=== PATIENT | female | born 1935 | race African-American/Black ===

== ENCOUNTER 2017-12-08 15:00 | Inpatient (IN) | payer OTHER ==
--- NOTE | 2017-12-08 15:46 | PDOC ---
Attending Attestation - Resident Resident Name: Mayito Montalvo - ED Attending Attestation I have performed the following: I have examined & evaluated the patient, The case was reviewed & discussed with the resident, I agree w/resident's findings & plan, Exceptions are as noted - Medical Decision Making 12/08/17 15:46 I, Dr. Brooklyn Dueñas, DO, attest that this document has been prepared under my direction and personally reviewed by me in its entirety. I further attest, that it accurately reflects all work, treatment, procedures and medical decision -making performed by me.
[2017-12-08 16:20] LABS: BASO % 0.5 % (0-2.0); HEMATOCRIT 44.3 % (32.4-45.2); LYMPH % 1.7 % (8-40); MCH 30.1 pg (25.7-33.7); MCHC 33.8 g/dl (32.0-36.0); MEAN CELL VOLUME 89.1 fl (80-96); MEAN PLT VOLUME 7.8 fl (7.5-11.1); MONO % 4.4 % (3.8-10.2); NEUT % 93.4 % (42.8-82.8); PLATELET COUNT 454 K/MM3 (134-434); RBC 4.97 M/mm3 (3.60-5.2); RDW 14.9 % (11.6-15.6); WHITE BLOOD COUNT 26.3 K/mm3 (4.0-10.0)
--- NOTE | 2017-12-08 16:25 | PDOC ---
Attending Attestation - Medical Decision Making 12/08/17 18:38 Pt presents to the ED complaining of epigastric pain with nausea and one episode of emesis. Denies fever, nausea and vomiting. Labs show elevated WBC count of 26. + mild tenderness in the epigastrium. Differential includes pyelonephritis, billiary disease, less likely other intraabdominal pathology. UA shows evidence of infection. Will treat with antibiotics and admit to medicine . RUQ US pending. Will check CT abdomen pelvis if US is negative. 12/08/17 18:45 <Nicolel Moses - Last Filed: 12/08/17 18:38> - HPI HPI: 12/08/17 17:56 The patient is a 82 year old female with a significant past medical history of HTN and HLD who presents to the ER with worsening abdominal pain. The patient describes the abdominal pain as intermittent, localized in the epigastrium, right and left upper quadrants with associated nausea and nonbloody, nonbilious vomit. Patient reports taking aleve with minimal relief. Patient denies having a colonscopy or endoscopy in the past. The patient denies chest pain, shortness of breath, headache, and dizziness. Denies fever, chills, diarrhea, and constipation. Denies dysuria, frequency, urgency, and hematuria. Allergies: strawberry Past surgical history: None reported. Social history: No reported alcohol, drug, or cigarette use. PCP: Dr. Giacomo Christianson - Physicial Exam PE: 12/08/17 19:35 ADULT EXAM GENERAL: Awake, alert, and fully oriented, in no acute distress HEAD: No signs of trauma EYES: PERRLA, EOMI, sclera anicteric, conjunctiva clear ENT: Auricles normal inspection, hearing grossly normal, nares patent, oropharynx clear without exudates. Moist mucosa NECK: Normal ROM, supple, no lymphadenopathy, JVD, or masses LUNGS: Breath sounds equal, clear to auscultation bilaterally. No wheezes, and no crackles HEART: Regular rate and rhythm, normal S1 and S2, no murmurs, rubs or gallops ABDOMEN: + mild tenderness in the epigastrium. Soft, normoactive bowel sounds. No guarding, no rebound. No masses EXTREMITIES: Normal range of motion, no edema. No clubbing or cyanosis. No cords, erythema, or tenderness NEUROLOGICAL: Cranial nerves II through XII grossly intact. Normal speech, normal gait SKIN: Warm, Dry, normal turgor, no rashes or lesions noted. <Cindy Brooks - Last Filed: 12/08/17 19:36>
--- NOTE | 2017-12-08 16:30 | PDOC ---
History of Present Illness - General History Source: Patient Exam Limitations: No Limitations - History of Present Illness Initial Comments: 12/08/17 16:21 The patient is an 82F with a PMH of HTN and HLD who presents to the ER with complaints of abdominal pain. The patient states that she's had intermittent, dull pain located in her RUQ, LUQ, and epigastrium. The pain started gradually and has worsened since it's onset. The pain has been associated with intermittent nausea and 3 bouts of NBNB vomiting. The patient has never had a colonoscopy or endoscopy. LBM 2 days ago which is not abnormal for the patient. The pain is not associated with any foods and was alleviated mildly by aleve. She denies any abdominal surgeries but states she's had "cysts" removed in the 's. <Mayito Montalvo - Last Filed: 12/08/17 18:51> <Marcia Obrien - Last Filed: 12/16/17 10:17> - General Chief Complaint: Pain Stated Complaint: CHEST PAIN Time Seen by Provider: 12/08/17 15:31 Past History - Past Medical History COPD: No HTN: Yes Hypercholesterolemia: Yes - Suicide/Smoking/Psychosocial Hx Smoking History: Never smoked <Mayito Montalvo - Last Filed: 12/08/17 18:51> <Marcia Obrien - Last Filed: 12/16/17 10:17> - Past Medical History Allergies/Adverse Reactions: Allergies Allergy/AdvReac Type Severity Reaction Status Date / Time strawberry Allergy Verified 12/08/17 16:55 Home Medications: Ambulatory Orders Atorvastatin Ca [Lipitor] 10 mg PO HS 12/08/17 Hydrochlorothiazide [Hctz -] 25 mg PO DAILY 12/08/17 Losartan Potassium 50 mg PO DAILY 12/08/17 Cefpodoxime Proxetil [Vantin -] 200 mg PO BID #20 tablet 12/15/17 Pantoprazole Sodium [Protonix -] 40 mg PO DAILY #30 tablet.ec 12/15/17 metroNIDAZOLE [Flagyl -] 500 mg PO TID #30 tablet 12/15/17 Review of Systems - Review of Systems Able to Perform ROS?: Yes Comments:: 12/08/17 16:38 GENERAL/CONSTITUTIONAL: No fever or chills. No weakness. HEAD, EYES, EARS, NOSE AND THROAT: No change in vision. No ear pain or discharge. No sore throat. CARDIOVASCULAR: No chest pain, palpitations, or lightheadedness. RESPIRATORY: No cough, wheezing, shortness of breath, or hemoptysis. GASTROINTESTINAL: Positive for nausea, vomiting, and abdominal pain. GENITOURINARY: No dysuria, frequency, hematuria, or change in urination. MUSCULOSKELETAL: No joint or muscle swelling or pain. No neck or back pain. SKIN: No rash or lesions. NEUROLOGIC: No headache, numbness, tingling, focal weakness, loss of consciousness, or change in strength/sensation. ENDOCRINE: No increased thirst. No abnormal weight change. HEMATOLOGIC/LYMPHATIC: No anemia, easy bleeding, or history of blood clots. ALLERGIC/IMMUNOLOGIC: No hives or skin allergy. Is the patient limited Tunisian proficient: No <Mayito Montalvo - Last Filed: 12/08/17 18:51> *Physical Exam - Vital Signs Last Vital Signs Temp Pulse Resp BP Pulse Ox 98.2 F 115 H 20 107/56 96 12/08/17 15:03 12/08/17 15:03 12/08/17 15:03 12/08/17 15:03 12/08/17 15:03 - Physical Exam Comments: 12/08/17 16:38 GENERAL: Well developed, well nourished. Awake and alert. No acute distress. HEENT: Normocephalic, atraumatic. Hearing grossly normal. Moist mucous membranes. PERRLA, EOMI. No conjunctival pallor. Sclera are non-icteric. NECK: Supple. Full ROM. No JVD. CARDIOVASCULAR: Regular rate and rhythm. No murmurs, rubs, or gallops. PULMONARY: No evidence of respiratory distress. Lungs clear to auscultation bilaterally. No wheezing, rales or rhonchi. ABDOMINAL: Soft. TTP over epigastrium, RUQ, and LUQ; most prominently in RUQ. Negative Coelho's sign. Non-distended. No rebound or guarding. GENITOURINARY: No CVA tenderness bilaterally. MUSCULOSKELETAL: Normal range of motion at all joints. No bony deformities or tenderness. EXTREMITIES: No cyanosis. No clubbing. No edema. No calf tenderness or swelling. SKIN: Warm and dry. Normal capillary refill. No rashes. No jaundice. NEUROLOGICAL: Alert, awake, appropriate. Cranial nerves 2-12 intact. Normal speech. Gait is normal without ataxia. PSYCHIATRIC: Cooperative. Good eye contact. Appropriate mood and affect. <Mayito Montalvo - Last Filed: 12/08/17 18:51> - Vital Signs Last Vital Signs Temp Pulse Resp BP Pulse Ox 97.9 F 89 18 114/70 94 L 12/15/17 13:26 12/15/17 13:26 12/15/17 08:50 12/15/17 13:26 12/15/17 08:50 <CamilleMarcia Kelsey - Last Filed: 12/16/17 10:17> Heart Score/ECG Review #1 ECG reviewed & interpreted by me at: 16:39 General ECG Interpretation: Sinus Rhythm, Normal Rate, Normal Intervals, No acute ischemic changes Compared to previous ECG there are: Previous ECG unavail 12/08/17 16:40 Sinus tach at 110 PA 116 QRS 98 QTc 480 Prolonged QT No STD or CESILIA No signs of acute ischemia No priors <Mayito Montalvo - Last Filed: 12/08/17 18:51> ED Treatment Course - LABORATORY CBC & Chemistry Diagram: 12/08/17 16:00 12/08/17 16:00 - RADIOLOGY Radiology Studies Ordered: Category Date Time Status CHEST X-RAY PORTABLE* [RAD] Stat Radiology 12/08/17 16:03 Ordered ABDOMEN US -LIMITED [US] Stat Ultrasound 12/08/17 16:17 Ordered <Mayito Montalvo - Last Filed: 12/08/17 18:51> - LABORATORY CBC & Chemistry Diagram: 12/13/17 06:30 12/15/17 07:24 - ADDITIONAL ORDERS Additional order review: 12/08/17 18:30 Blood Culture - Final Blood - Peripheral Venous NO GROWTH AFTER 5 DAYS INCUBATION 12/08/17 18:30 Blood Culture - Final Blood - Peripheral Venous NO GROWTH AFTER 5 DAYS INCUBATION 12/08/17 16:00 RBC 4.97 MCV 89.1 MCHC 33.8 RDW 14.9 MPV 7.8 Neutrophils % 93.4 H Lymphocytes % 1.7 L Monocytes % 4.4 Eosinophils % 0.0 Basophils % 0.5 - Medications Given in the ED: ED Medications Discontinued Medications Generic Name Dose Route Start Last Admin Trade Name Freq PRN Reason Stop Dose Admin Acetaminophen 1,000 mg 12/08/17 18:58 12/08/17 19:10 Ofirmev Injection - IVPB 12/08/17 18:59 1,000 mg ONCE ONE Administration Acetaminophen 650 mg 12/09/17 03:57 12/14/17 09:31 Tylenol - PO 650 mg Q6H PRN Administration FEVER Acetaminophen 1,000 mg 12/09/17 13:00 12/09/17 13:00 Ofirmev Injection - IVPB 12/09/17 13:01 1,000 mg ONCE ONE Administration Al Hydroxide/Mg Hydroxide 30 ml 12/12/17 23:00 12/12/17 23:18 Mylanta Oral Suspension - PO 12/12/17 23:01 30 ml ONCE ONE Administration Cefpodoxime Proxetil 200 mg 12/14/17 22:00 12/15/17 09:18 Vantin - PO 200 mg BID JOSE ENRIQUE Administration Ceftriaxone Sodium 1,000 mg/ 50 mls @ 100 mls/hr 12/08/17 18:50 12/08/17 19: 10 Dextrose IVPB 12/08/17 19:19 100 mls/hr ONCE ONE Administration Famotidine/Sodium Chloride 20 mg in 50 mls @ 100 mls/hr 12/08/17 18:58 19:05 Pepcid 20 Mg Premixed Ivpb - IVPB 12/08/17 19:27 100 mls/hr ONCE ONE Administration Potassium Chloride 10 meq in 100 mls @ 100 mls/hr 12/08/17 19:15 12/08/17 19: 15 Potassium Chloride 10 Meq Premix Ivpb - IVPB 12/08/17 20:14 100 mls/hr Q60M JOSE ENRIQUE Administration Piperacillin Sod/Tazobactam 100 mls @ 200 mls/hr 12/08/17 22:11 12/08/17 22: 11 Sod 4.5 gm/ Dextrose IVPB 12/08/17 22:40 200 mls/hr ONCE ONE Administration Protocol Vancomycin HCl 1,000 mg/ 250 mls @ 166.667 mls/hr 12/08/17 22:25 12/08/17 23: 00 Dextrose IVPB 12/08/17 23:54 166.667 mls/hr ONCE ONE Administration Protocol Dextrose/Sodium Chloride 1,000 mls @ 75 mls/hr 12/09/17 04:00 12/09/17 04:28 D5-1/2ns - IV 75 mls/hr ASDIR JOSE ENRIQUE Administration Metronidazole 500 mg in 100 mls @ 100 mls/hr 12/09/17 10:00 12/09/17 09:48 Flagyl 500mg Premixed Ivpb - IVPB 100 mls/hr Q8H-IV JOSE ENRIQUE Administration Levofloxacin 500 mg in 100 mls @ 100 mls/hr 12/09/17 03:53 12/09/17 14:42 Levaquin 500 Mg Premixed Ivpb - IVPB Not Given DAILY JOSE ENRIQUE Protocol Potassium Chloride 10 meq in 100 mls @ 100 mls/hr 12/09/17 04:00 12/09/17 05: 31 Potassium Chloride 10 Meq Premix Ivpb - IVPB 12/09/17 05:59 100 mls/hr Q60M JOSE ENRIQUE Administration Levofloxacin 500 mg in 100 mls @ 100 mls/hr 12/09/17 04:15 12/09/17 04:15 Levaquin 500 Mg Premixed Ivpb - IVPB 12/09/17 05:14 100 mls/hr ONCE ONE Administration Piperacillin Sod/Tazobactam 50 mls @ 100 mls/hr 12/09/17 18:00 12/10/17 09:08 Sod 2.25 gm/ Dextrose IVPB 12/10/17 10:29 100 mls/hr Q8H-IV JOSE ENRIQUE Administration Protocol Dextrose/Sodium Chloride 1,000 mls @ 100 mls/hr 12/09/17 17:15 12/10/17 06:03 D5-Ns - IV 100 mls/hr ASDIR JOSE ENRIQUE Administration Potassium Chloride 10 meq in 100 mls @ 100 mls/hr 12/09/17 17:15 12/09/17 18: 35 Potassium Chloride 10 Meq Premix Ivpb - IVPB 12/09/17 18:14 100 mls/hr Q60M JOSE ENRIQUE Administration Sodium Chloride 500 mls @ 500 mls/hr 12/09/17 17:15 12/09/17 18:34 Normal Saline - IV 12/09/17 18:14 500 mls/hr ASDIR STA Administration Potassium Chloride 10 meq in 100 mls @ 100 mls/hr 12/10/17 12:00 12/10/17 17: 03 Potassium Chloride 10 Meq Premix Ivpb - IVPB 12/10/17 14:59 100 mls/hr Q60M JOSE ENRIQUE Administration Dextrose/Sodium Chloride 1,000 mls @ 90 mls/hr 12/10/17 11:47 12/11/17 09:18 D5-Ns - IV 90 mls/hr ASDIR JOSE ENRIQUE Administration Piperacillin Sod/Tazobactam 100 mls @ 200 mls/hr 12/10/17 18:00 12/11/17 09: 17 Sod 4.5 gm/ Dextrose IVPB 200 mls/hr Q8H-IV JOSE ENRIQUE Administration Protocol Dextrose/Sodium Chloride 1,000 mls @ 65 mls/hr 12/11/17 12:36 12/12/17 09:23 D5-Ns - IV 65 mls/hr ASDIR JOSE ENRIQUE Administration Ceftriaxone Sodium 1 gm/ 50 mls @ 200 mls/hr 12/11/17 15:00 12/14/17 09:31 Dextrose IVPB 200 mls/hr DAILY JOSE ENRIQUE Administration Protocol Metronidazole 500 mg in 100 mls @ 100 mls/hr 12/11/17 18:00 12/14/17 09:31 Flagyl 500mg Premixed Ivpb - IVPB 100 mls/hr Q8H-IV JOSE ENRIQUE Administration Sodium Chloride 1,000 mls @ 75 mls/hr 12/12/17 14:00 12/13/17 06:04 1/2 Normal Saline IV 75 mls/hr ASDIR JOSE ENRIQUE Administration Sodium Chloride 1,000 mls @ 35 mls/hr 12/13/17 12:06 12/14/17 09:36 1/2 Normal Saline IV 35 mls/hr ASDIR JOSE ENRIQUE Administration Losartan Potassium 50 mg 12/09/17 10:00 12/09/17 09:48 Cozaar - PO Not Given DAILY JOSE ENRIQUE Metronidazole 500 mg 12/14/17 14:00 12/15/17 13:42 Flagyl - PO 500 mg TID JOSE ENRIQUE Administration Morphine Sulfate 4 mg 12/09/17 03:55 12/11/17 21:44 Morphine Sulfate IVPUSH 4 mg Q6H PRN Administration PAIN 4-6 Pantoprazole Sodium 40 mg 12/13/17 10:45 12/15/17 09:18 Protonix - PO 40 mg DAILY JOSE ENRIQUE Administration Potassium Chloride 20 meq 12/11/17 12:45 12/11/17 13:11 Potassium Chloride Oral Liquid PO 09/12/18 12:46 20 meq ONCE ONE Administration Potassium Chloride 20 meq 12/13/17 13:15 12/13/17 13:15 Potassium Chloride Oral Liquid PO 12/13/17 13:16 20 meq ONCE ONE Administration Sodium Chloride 2,449 ml 12/08/17 18:55 12/08/17 19:10 Normal Saline - 30 ml/kg (2449 ml) 12/08/17 18:56 Not Given IV ONCE STA Sodium Chloride 1,000 ml 12/08/17 21:24 12/08/17 21:25 Normal Saline - IV 12/08/17 21:25 1,000 ml ONCE ONE Administration Sodium Chloride 1,000 ml 12/08/17 23:19 12/08/17 23:20 Normal Saline - IV 12/08/17 23:20 1,000 ml ONCE ONE Administration Sucralfate 1 gm 12/13/17 13:30 12/15/17 09:17 Carafate Oral Suspension - PO 1 gm BID JOSE ENRIQUE Administration <Mracia Obrien - Last Filed: 12/16/17 10:17> Medical Decision Making - Medical Decision Making 12/08/17 18:51 The patient is an 82F with a PMH of HTN and HLD who presents with b/l upper quadrant pain and epigastric pain concerning for cholecystitis vs pancreatitis vs atypical presentation of ACS. Pending labs and imaging. Pt signed out to Dr. Monroy for continued care. <Mayito Montalvo - Last Filed: 12/08/17 18:51> *DC/Admit/Observation/Transfer <Mayito Montalvo - Last Filed: 12/08/17 18:51> <Marcia Obrien - Last Filed: 12/16/17 10:17> Diagnosis at time of Disposition: Hyperbilirubinemia, SETH (acute kidney injury), Cholecystitis Leukocytosis Qualifiers: Leukocytosis type: unspecified Qualified Code(s): D72.829 - Elevated white blood cell count, unspecified Abdominal pain Qualifiers: Abdominal location: unspecified location Qualified Code(s): R10.9 - Unspecified abdominal pain - Discharge Dispostion Disposition: VNS/HOME HEALTH CARE Condition at time of disposition: Good
[2017-12-08 16:32] LABS: INR 1.19 (0.83-1.09); PROTHROMBIN TIME (PATIENT) 13.5 SEC (9.7-13.0)
[2017-12-08 16:45] LABS: PLATELET ESTIMATE ADEQUATE
[2017-12-08 16:52] LABS: ALBUMIN 3.1 g/dl (3.4-5.0); ANION GAP 16 MMOL/L (8-16); BILIRUBIN,TOTAL 1.6 mg/dL (0.2-1.0); BLOOD UREA NITROGEN 40 mg/dL (7-18); CALCIUM 9.1 mg/dL (8.5-10.1); CHLORIDE 91 mmol/L (98-107); CO2 25 mmol/L (21-32); CREATININE 2.2 mg/dL (0.55-1.02); GLUCOSE,RANDOM 94 mg/dL (74-106); LIPASE 116 U/L (73-393); SGPT/ALT 89 U/L (12-78); SODIUM 132 mmol/L (136-145); TOT PROT 7.9 g/dl (6.4-8.2)
[2017-12-08 16:53] LABS: ALK PHOS 113 U/L (45-117)
[2017-12-08 16:54] LABS: POTASSIUM 3.3 mmol/L (3.5-5.1); SGOT/AST 38 U/L (15-37)
[2017-12-08 17:52] LABS: URINE APPEARANCE TURBID; URINE BILIRUBIN NEGATIVE (<2.0 mg/dL); URINE COLOR AMBER; URINE GLUCOSE (UA) NEGATIVE (NEGATIVE); URINE KETONE NEGATIVE (NEGATIVE); URINE LEUK ESTERASE TRACE (NEGATIVE); URINE NITRITE NEGATIVE (NEGATIVE); URINE PROTEIN 1+ (NEGATIVE); URINE UROBILINOGEN 4.0 E.U/dl mg/dL (0.2-1.0)
[2017-12-08 17:58] LABS: EPI CELLS MANY /HPF (FEW); URINE BACTERIA MODERATE /hpf (NONE SEEN); URINE MUCUS MODERATE
[2017-12-08] MEDS ORDERED: CEFTRIAXONE 1,000 MG in DEXTROSE 5%-WATER - 50 ML IVPB ONE (18:50)
--- NOTE | 2017-12-08 18:50 | PDOC ---
*Physical Exam - Vital Signs Last Vital Signs Temp Pulse Resp BP Pulse Ox 98.2 F 115 H 20 107/56 96 12/08/17 15:03 12/08/17 15:03 12/08/17 15:03 12/08/17 15:03 12/08/17 15:03 - Physical Exam Comments: 12/08/17 18:40 Patient's care endorsed to me by Dr. Montalvo at the end of his shift. The patient is an 82 YOF with h/o HTN, HLD, and abdominal surgery "for cysts" in the 1970s, who p/w 2 days worsening RUQ and epigastric pain, WBC >26, T. bili mild increased. On vitals she is mildly tachycardic, rectal temp is 99.9. General Appearance: Yes: Nourished, Appropriately Dressed, Other (nontoxic appearing, pleasant elderly female accompanied by her daughter, answers questions appropriately). No: Apparent Distress HEENT: positive: EOMI, JOSÉ, Normal Voice, Hearing Grossly Normal. negative: Scleral Icterus (R), Scleral Icterus (L), Nasal Congestion Neck: positive: Trachea midline, Supple. negative: Tender, Rigid, Lymphadenopathy (R), Lymphadenopathy (L) Respiratory/Chest: positive: Lungs Clear, Normal Breath Sounds. negative: Respiratory Distress, Crackles, Rhonchi, Stridor, Wheezing Cardiovascular: positive: Regular Rhythm, Regular Rate, S1, S2. negative: Edema , JVD, Murmur, Tachycardia Gastrointestinal/Abdominal: positive: Normal Bowel Sounds, Tender (mild epigastric and RUQ ttp), Soft. negative: Organomegaly, Pulsatile Mass, Guarding Musculoskeletal: positive: Normal Inspection. negative: Decreased Range of Motion, Vertebral Tenderness Extremity: positive: Normal Capillary Refill, Normal Inspection, Normal Range of Motion. negative: Tender, Cyanosis Integumentary: positive: Normal Color, Dry, Warm. 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 negative: EOM Palsy, Facial Droop, Numbness, Sensory Deficit, Confused, Disoriented ED Treatment Course - LABORATORY CBC & Chemistry Diagram: 12/08/17 22:30 12/08/17 22:30 - ADDITIONAL ORDERS Additional order review: Laboratory Results 12/08/17 12/08/17 12/08/17 17:40 16:00 16:00 PT with INR INR Sodium 132 L Potassium 3.3 L Chloride 91 L Carbon Dioxide 25 Anion Gap 16 BUN 40 H Creatinine 2.2 H Creat Clearance w eGFR 21.48 Random Glucose 94 Calcium 9.1 Total Bilirubin 1.6 H AST 38 H ALT 89 H Alkaline Phosphatase 113 Creatine Kinase Troponin I Total Protein 7.9 Albumin 3.1 L Lipase 116 Urine Color [place] Urine Appearance Turbid Urine pH 5.0 Ur Specific [place] 1.019 Urine Protein 1+ H Urine Glucose (UA) Negative Urine Ketones Negative Urine Blood Negative Urine Nitrite Negative Urine Bilirubin Negative Urine Urobilinogen 4.0 e.u/dl H Ur Leukocyte Esterase Trace Urine WBC (Auto) 30 Urine RBC (Auto) None Ur Epithelial Cells Many Urine Bacteria Moderate Urine Mucus Moderate Anti-A Titer Cancelled Blood Type Cancelled Antibody Screen Cancelled 12/08/17 12/08/17 16:00 16:00 PT with INR 13.50 H INR 1.19 H Sodium Potassium Chloride Carbon Dioxide Anion Gap BUN Creatinine Creat Clearance w eGFR Random Glucose Calcium Total Bilirubin AST ALT Alkaline Phosphatase Creatine Kinase 142 Troponin I < 0.02 Total Protein Albumin Lipase Urine Color Urine Appearance Urine pH Ur Specific [place] Urine Protein Urine Glucose (UA) Urine Ketones Urine Blood Urine Nitrite Urine Bilirubin Urine Urobilinogen Ur Leukocyte Esterase Urine WBC (Auto) Urine RBC (Auto) Ur Epithelial Cells Urine Bacteria Urine Mucus Anti-A Titer Blood Type Antibody Screen 12/08/17 16:00 RBC 4.97 MCV 89.1 MCHC 33.8 RDW 14.9 MPV 7.8 Neutrophils % 93.4 H Lymphocytes % 1.7 L Monocytes % 4.4 Eosinophils % 0.0 Basophils % 0.5 Medical Decision Making - Medical Decision Making Laboratory Tests 12/08/17 12/08/17 12/08/17 16:00 16:00 16:00 WBC 26.3 H RBC 4.97 Hgb 15.0 Hct 44.3 MCV 89.1 MCH 30.1 MCHC 33.8 RDW 14.9 Plt Count 454 H MPV 7.8 Absolute Neuts (auto) 24.6 H Neutrophils % 93.4 H Neutrophils % (Manual) 87.0 H Band Neutrophils % 5.0 Lymphocytes % 1.7 L Lymphocytes % (Manual) 6.0 L Monocytes % 4.4 Monocytes % (Manual) 2 L Eosinophils % 0.0 Eosinophils % (Manual) 0.0 Basophils % 0.5 Basophils % (Manual) 0.0 Nucleated RBC % 0 Platelet Estimate Adequate PT with INR 13.50 H INR 1.19 H Sodium Potassium Chloride Carbon Dioxide Anion Gap BUN Creatinine Creat Clearance w eGFR Random Glucose Lactic Acid Calcium Total Bilirubin AST ALT Alkaline Phosphatase Creatine Kinase 142 Troponin I < 0.02 Total Protein Albumin Lipase Urine Color Urine Appearance Urine pH Ur Specific [place] Urine Protein Urine Glucose (UA) Urine Ketones Urine Blood Urine Nitrite Urine Bilirubin Urine Urobilinogen Ur Leukocyte Esterase Urine WBC (Auto) Urine RBC (Auto) Ur Epithelial Cells Urine Bacteria Urine Mucus Anti-A Titer Blood Type Antibody Screen 12/08/17 12/08/17 12/08/17 16:00 16:00 17:40 WBC RBC Hgb Hct MCV MCH MCHC RDW Plt Count MPV Absolute Neuts (auto) Neutrophils % Neutrophils % (Manual) Band Neutrophils % Lymphocytes % Lymphocytes % (Manual) Monocytes % Monocytes % (Manual) Eosinophils % Eosinophils % (Manual) Basophils % Basophils % (Manual) Nucleated RBC % Platelet Estimate PT with INR INR Sodium 132 L Potassium 3.3 L Chloride 91 L Carbon Dioxide 25 Anion Gap 16 BUN 40 H Creatinine 2.2 H Creat Clearance w eGFR 21.48 Random Glucose 94 Lactic Acid Calcium 9.1 Total Bilirubin 1.6 H AST 38 H ALT 89 H Alkaline Phosphatase 113 Creatine Kinase Troponin I Total Protein 7.9 Albumin 3.1 L Lipase 116 Urine Color [place] Urine Appearance Turbid Urine pH 5.0 Ur Specific [place] 1.019 Urine Protein 1+ H Urine Glucose (UA) Negative Urine Ketones Negative Urine Blood Negative Urine Nitrite Negative Urine Bilirubin Negative Urine Urobilinogen 4.0 e.u/dl H Ur Leukocyte Esterase Trace Urine WBC (Auto) 30 Urine RBC (Auto) None Ur Epithelial Cells Many Urine Bacteria Moderate Urine Mucus Moderate Anti-A Titer Cancelled Blood Type Cancelled Antibody Screen Cancelled 12/08/17 18:30 WBC RBC Hgb Hct MCV MCH MCHC RDW Plt Count MPV Absolute Neuts (auto) Neutrophils % Neutrophils % (Manual) Band Neutrophils % Lymphocytes % Lymphocytes % (Manual) Monocytes % Monocytes % (Manual) Eosinophils % Eosinophils % (Manual) Basophils % Basophils % (Manual) Nucleated RBC % Platelet Estimate PT with INR INR Sodium Potassium Chloride Carbon Dioxide Anion Gap BUN Creatinine Creat Clearance w eGFR Random Glucose Lactic Acid 1.1 Calcium Total Bilirubin AST ALT Alkaline Phosphatase Creatine Kinase Troponin I Total Protein Albumin Lipase Urine Color Urine Appearance Urine pH Ur Specific [place] Urine Protein Urine Glucose (UA) Urine Ketones Urine Blood Urine Nitrite Urine Bilirubin Urine Urobilinogen Ur Leukocyte Esterase Urine WBC (Auto) Urine RBC (Auto) Ur Epithelial Cells Urine Bacteria Urine Mucus Anti-A Titer Blood Type Antibody Screen 12/08/17 19:23 Patient's rectal temp now 99.6. Ordered is Ofirmev, Pepcid, IVF, monitor placed. 12/08/17 19:40 I recheck vitals at this time: HR 86, Pulse ox 92% RA, RR 22, BP 119/67. Vital Signs Temperature 99.6 F 12/08/17 20:07 Pulse Rate 92 H 12/08/17 20:07 Respiratory Rate 18 12/08/17 20:07 Blood Pressure 123/64 12/08/17 20:07 O2 Sat by Pulse Oximetry (%) 93 L 12/08/17 20:07 12/08/17 20:15 I hooked up first liter IVF for the patient (NS). 12/08/17 20:[address] Brunner; in agreement with plan for admission to IP med/surg. Patient to get CT A/P without contrast. 12/08/17 22:19 CT A/P results with c/f acute cholecystitis and RLL PNA. I spoke with Dr. Brunner to inform her; requests Dr. Munroe. I spoke with Dr. Munroe; requests NPO and HIDA in the morning. I have already ordered Zosyn. Dr. Munroe agrees with plan to also order vancomycin. Patient will be kept NPO. 12/08/17 23:20 Repeat labs reviewed. 2nd liter NS ordered for the patient. *DC/Admit/Observation/Transfer Diagnosis at time of Disposition: Prolonged QT interval, Hyperbilirubinemia, SETH (acute kidney injury), Cholecystitis Leukocytosis Qualifiers: Leukocytosis type: unspecified Qualified Code(s): D72.829 - Elevated white blood cell count, unspecified Abdominal pain Qualifiers: Abdominal location: unspecified location Qualified Code(s): R10.9 - Unspecified abdominal pain - Discharge Dispostion Condition at time of disposition: Guarded Decision to Admit order: Yes - Referrals - Patient Instructions - Post Discharge Activity
[2017-12-08] MEDS ORDERED: SODIUM CHLORIDE 0.9% 1000 ML INFUS.BAG IV STA (18:55)
[2017-12-08] MEDS ORDERED: ACETAMINOPHEN 1000 MG/100 ML VIAL (NON FORMULARY) IVPB ONE (18:58)
[2017-12-08] MEDS ORDERED: FAMOTIDINE 20 MG/50 ML IVPB 20 MG/50 ML MG IVPB ONE ×3 (18:58→21:32)
[2017-12-08] MEDS ORDERED: KCL 10 MEQ IVPB 10 MEQ/100 ML INFUS.BAG IVPB SCH (19:15)
[2017-12-08] MEDS ORDERED: HEMOQUE TEST 1 EACH EACH ONE (20:58)
[2017-12-08] MEDS ORDERED: SODIUM CHLORIDE 0.9% 500 ML INFUS.BAG IV ONE ×2 (21:24→23:19)
[2017-12-08] MEDS ORDERED: ACETAMINOPHEN INJECTION 100 ML IVPB ONE (21:29)
[2017-12-08] MEDS ORDERED: CEFTRIAXONE 1 GM/50 ML BAG ONE (21:30)
[2017-12-08] MEDS ORDERED: KCL 10 MEQ IVPB 10 MEQ/100 ML INFUS.BAG IVPB ONE (21:31)
[2017-12-08] MEDS ORDERED: PIPERACILLIN/TAZOB 4.5 GM 4.5 GM in DEXTROSE 5%-WATER 100 ML IVPB ONE (22:11)
[2017-12-08] MEDS ORDERED: VANCOMYCIN 1,000 MG in DEXTROSE 5%-WATER - 250 ML IVPB ONE (22:25)
[2017-12-08 22:41] LABS: BASO % 0.4 % (0-2.0); HEMATOCRIT 40.9 % (32.4-45.2); HEMOGLOBIN 13.8 GM/dL (10.7-15.3); LYMPH % 2.5 % (8-40); MCH 30.3 pg (25.7-33.7); MCHC 33.8 g/dl (32.0-36.0); MEAN CELL VOLUME 89.5 fl (80-96); MEAN PLT VOLUME 7.9 fl (7.5-11.1); MONO % 5.2 % (3.8-10.2); NEUT % 91.9 % (42.8-82.8); PLATELET COUNT 410 K/MM3 (134-434); RBC 4.57 M/mm3 (3.60-5.2); RDW 14.9 % (11.6-15.6); WHITE BLOOD COUNT 22.6 K/mm3 (4.0-10.0)
[2017-12-08] MEDS ORDERED: PIPERACILLIN/TAZOB 4.5 GM 4.5 GM/100 ML BAG IVPB ONE (23:08)
[2017-12-08 23:09] LABS: ALBUMIN 2.6 g/dl (3.4-5.0); ANION GAP 11 MMOL/L (8-16); BLOOD UREA NITROGEN 46 mg/dL (7-18); CALCIUM 8.5 mg/dL (8.5-10.1); CHLORIDE 91 mmol/L (98-107); CO2 30 mmol/L (21-32); CREATININE 2.3 mg/dL (0.55-1.02); GLUCOSE,RANDOM 115 mg/dL (74-106); POTASSIUM 3.3 mmol/L (3.5-5.1); SGOT/AST 27 U/L (15-37); SGPT/ALT 67 U/L (12-78); SODIUM 132 mmol/L (136-145)
[2017-12-08 23:11] LABS: ALK PHOS 109 U/L (45-117); BILIRUBIN,TOTAL 0.9 mg/dL (0.2-1.0); TOT PROT 6.7 g/dl (6.4-8.2)
[2017-12-08 23:15] LABS: PLATELET ESTIMATE ADEQUATE
[2017-12-09] MEDS ORDERED: VANCOMYCIN 1 GRAM (PRE-DOCKED) 1,000 MG/250 ML BAG IVPB ONE (00:24)
[2017-12-09] MEDS ORDERED: ONDANSETRON 4 MG/2 ML VIAL IVPUSH PRN (03:57)
[2017-12-09] MEDS: KCL 10 MEQ IVPB 10 MEQ/100 ML INFUS.BAG IVPB SCH ×2 (04:00→05:31)
[2017-12-09] MEDS ORDERED: DEXTROSE 5%-0.45% SALINE 1,000 ML IV SCH (04:00)
[2017-12-09] MEDS ORDERED: KCL 10 MEQ IVPB 10 MEQ/100 ML INFUS.BAG IVPB ONE ×2 (04:09→05:24)
[2017-12-09 06:37] LABS: BASO % 0.2 % (0-2.0); HEMATOCRIT 40.8 % (32.4-45.2); HEMOGLOBIN 13.7 GM/dL (10.7-15.3); LYMPH % 2.1 % (8-40); MCH 30.1 pg (25.7-33.7); MCHC 33.6 g/dl (32.0-36.0); MEAN CELL VOLUME 89.5 fl (80-96); MONO % 4.7 % (3.8-10.2); PLATELET COUNT 332 K/MM3 (134-434); RBC 4.55 M/mm3 (3.60-5.2); RDW 14.6 % (11.6-15.6); WHITE BLOOD COUNT 18.4 K/mm3 (4.0-10.0)
[2017-12-09 06:59] LABS: ALBUMIN 2.3 g/dl (3.4-5.0); ANION GAP 12 MMOL/L (8-16); BLOOD UREA NITROGEN 45 mg/dL (7-18); CHLORIDE 95 mmol/L (98-107); CO2 25 mmol/L (21-32); GLUCOSE,RANDOM 98 mg/dL (74-106); POTASSIUM 3.5 mmol/L (3.5-5.1); SGOT/AST 25 U/L (15-37); SGPT/ALT 55 U/L (12-78); SODIUM 132 mmol/L (136-145)
[2017-12-09 07:01] LABS: ALK PHOS 106 U/L (45-117); BILIRUBIN,TOTAL 0.7 mg/dL (0.2-1.0)
--- NOTE | 2017-12-09 08:58 | CONSULT ---
Consult Consult Specialty:: Surgery Reason for Consultation:: Acute cholecystitis - History of Present Illness Chief Complaint: Abdominal pain History of Present Illness: The patient is a 82 year old female with a significant past medical history of HTN and HLD who presents to the ER with worsening abdominal pain x 2 days. The patient describes the abdominal pain as intermittent, localized in the epigastrium, right and left upper quadrants with associated nausea and nonbloody , nonbilious vomiting. Patient reports taking aleve with minimal relief. Patient denies having a colonoscopy or endoscopy in the past. The patient denies chest pain, shortness of breath, headache, and dizziness. Denies fever, chills, diarrhea, and constipation. Denies dysuria, frequency, urgency, and hematuria. - History Source History Provided By: Patient Limitations to Obtaining History: No Limitations - Past Medical History Cardio/Vascular: Yes: HTN Reproductive: Yes: Other (ovarian cyst) ...LMP Comment: post menopausal - Past Surgical History Past Surgical History: Yes: Cystectomy (ovarian cyst) - Smoking History Smoking history: Never smoked Home Medications - Allergies Allergies/Adverse Reactions: Allergies Allergy/AdvReac Type Severity Reaction Status Date / Time strawberry Allergy Verified 12/08/17 16:55 - Home Medications Home Medications: Ambulatory Orders Atorvastatin Ca [Lipitor] 10 mg PO HS 12/08/17 Hydrochlorothiazide [Hctz -] 25 mg PO DAILY 12/08/17 Losartan Potassium 50 mg PO DAILY 12/08/17 Review of Systems - Review of Systems Constitutional: reports: No Symptoms Gastrointestinal: reports: Abdominal Pain Musculoskeletal: reports: No Symptoms Integumentary: reports: No Symptoms Pain Intensity: 7 Physical Exam Vital Signs: Vital Signs Temperature 98.6 F 12/09/17 06:00 Pulse Rate 75 12/09/17 06:00 Respiratory Rate 12/09/17 06:00 Blood Pressure 112/48 12/09/17 06:00 O2 Sat by Pulse Oximetry (%) 90 L 12/09/17 06:00 Constitutional: Yes: Obese Eyes: Yes: Conjunctiva Clear HENT: Yes: Normocephalic Neck: Yes: Supple Cardiovascular: Yes: Regular Rate and Rhythm Respiratory: Yes: Poor Air Entry (RLL) Gastrointestinal: Yes: Abdomen, Obese, Tenderness (RUQ), Tenderness, Epigastrium ...Rectal Exam: Yes: Deferred Edema: No Integumentary: Yes: WNL Neurological: Yes: Alert, Oriented Labs: CBC, BMP 12/09/17 05:55 12/09/17 05:55 Imaging - Results Cat Scan: Image Reviewed Ultrasound: Report Reviewed, Image Reviewed Problem List - Problems (1) Cholecystitis Assessment/Plan: HIDA scan IR consult for possible percutaneous cholecystostomy in light of patient being high risk for surgery due to pneumonia and SETH. IV antibiotics Code(s): K81.9 - CHOLECYSTITIS, UNSPECIFIED
[2017-12-09] MEDS ORDERED: HEPARIN NA (PORCINE) 5,000 UNITS/ML 1ML VIAL SQ SCH (10:00)
[2017-12-09] MEDS ORDERED: LOSARTAN POTASSIUM 50 MG TABLET (FP) PO SCH (10:00)
--- NOTE | 2017-12-09 10:31 | EKG ---
Test Reason : Blood Pressure : / mmHG Vent. Rate : 113 BPM Atrial Rate : 113 BPM P-R Int : 116 ms QRS Dur : 098 ms QT Int : 350 ms P-R-T Axes : 039 -17 055 degrees QTc Int : 480 ms SINUS TACHYCARDIA POSSIBLE LEFT ATRIAL ENLARGEMENT LEFT VENTRICULAR HYPERTROPHY ABNORMAL ECG NO PREVIOUS ECGS AVAILABLE Confirmed by GAURI VORA, ADRIAN ([id number]) on 12/09/2017 10:31:12 AM Referred By: Confirmed By:ADRIAN ASTORGA MD
--- NOTE | 2017-12-09 11:02 | HP ---
Admitting History and Physical - Past Medical History Cardiovascular: Yes: HTN ...LMP Comment: post menopausal - Past Surgical History Past Surgical History: Yes: Cystectomy (ovarian cyst) - Smoking History Smoking history: Never smoked Home Medications - Allergies Allergies/Adverse Reactions: Allergies Allergy/AdvReac Type Severity Reaction Status Date / Time strawberry Allergy Verified 12/08/17 16:55 - Home Medications Home Medications: Ambulatory Orders Atorvastatin Ca [Lipitor] 10 mg PO HS 12/08/17 Hydrochlorothiazide [Hctz -] 25 mg PO DAILY 12/08/17 Losartan Potassium 50 mg PO DAILY 12/08/17 Physical Examination Vital Signs: Vital Signs Temperature 97.5 F L 12/09/17 09:27 Pulse Rate 73 12/09/17 10:59 Respiratory Rate 16 12/09/17 10:59 Blood Pressure 124/71 12/09/17 10:59 O2 Sat by Pulse Oximetry (%) 100 12/09/17 10:59 Labs: CBC, BMP 12/09/17 05:55 12/09/17 05:55
[2017-12-09 11:34] LABS: ANISOCYTOSIS 1+; MACROCYTOSIS 0; PLATELET ESTIMATE NORMAL
[2017-12-09] MEDS ORDERED: morphine SULFATE 4 MG/ML VIAL ONE (11:43)
[2017-12-09] MEDS: morphine SULFATE 4 MG/ML VIAL IVPUSH PRN (11:50)
--- NOTE | 2017-12-09 12:54 | CONSULT ---
Consult Consult Specialty:: Nephrology Reason for Consultation:: SETH - History of Present Illness Chief Complaint: abdominal pain History of Present Illness: Pt is an 82 year old female with pmhx of HTN and HLD who presents to the ER with abdominal pain. She has had decreased PO intake, nausea, and vomiting. She was found to have BG wall thickening and pericholecystic fluids. She was taken for a biliary drain today. I was called to evaluate her for SETH as she was found to have elevated creatinine. She denies history of CKD. She has been taking nsaids for the last week. She denies shortness of breath. She denies dysuria or hematuria. SHe denies family hx of kidney disease. She was on losartan and hctz for HTN. - History Source History Provided By: Patient, Medical Record - Past Medical History Cardio/Vascular: Yes: HTN, Hyperlipdemia ...LMP Comment: post menopausal - Past Surgical History Past Surgical History: Yes: Cystectomy (ovarian cyst) - Smoking History Smoking history: Never smoked Home Medications - Allergies Allergies/Adverse Reactions: Allergies Allergy/AdvReac Type Severity Reaction Status Date / Time strawberry Allergy Verified 12/08/17 16:55 - Home Medications Home Medications: Ambulatory Orders Atorvastatin Ca [Lipitor] 10 mg PO HS 12/08/17 Hydrochlorothiazide [Hctz -] 25 mg PO DAILY 12/08/17 Losartan Potassium 50 mg PO DAILY 12/08/17 Family Disease History - Family Disease History Family History: Denies Review of Systems - Review of Systems Constitutional: reports: Chills, Malaise Eyes: reports: No Symptoms HENT: reports: No Symptoms Neck: reports: No Symptoms Cardiovascular: reports: No Symptoms Respiratory: reports: No Symptoms Gastrointestinal: reports: Abdominal Pain Genitourinary: reports: No Symptoms Musculoskeletal: reports: No Symptoms Integumentary: reports: No Symptoms Neurological: reports: No Symptoms Endocrine: reports: No Symptoms Hematology/Lymphatic: reports: No Symptoms Psychiatric: reports: No Symptoms Physical Exam Vital Signs: Vital Signs Temperature 97.5 F L 12/09/17 09:27 Pulse Rate 73 12/09/17 10:59 Respiratory Rate 16 12/09/17 10:59 Blood Pressure 124/71 12/09/17 10:59 O2 Sat by Pulse Oximetry (%) 100 12/09/17 10:59 Constitutional: Yes: Calm Eyes: Yes: Conjunctiva Clear HENT: Yes: Atraumatic Neck: Yes: Supple Cardiovascular: Yes: S1, S2 Respiratory: Yes: On Nasal O2 Gastrointestinal: Yes: Soft, Abdomen, Obese, Other (biliary drain in place) Renal/: Yes: WNL Musculoskeletal: Yes: WNL Edema: No Neurological: Yes: Oriented Psychiatric: Yes: Oriented Labs: CBC, BMP 12/09/17 05:55 12/09/17 05:55 Laboratory Tests 12/08/17 12/08/17 12/08/17 16:00 16:00 17:40 WBC 26.3 H Creatinine 2.2 H Urine Protein 1+ H 12/08/17 12/08/17 12/09/17 22:30 22:30 05:55 WBC 22.6 H 18.4 H Creatinine 2.3 H Urine Protein 12/09/17 05:55 WBC Creatinine 2.0 H Urine Protein Imaging - Results Cat Scan: Report Reviewed Problem List - Problems (1) SETH (acute kidney injury) Code(s): N17.9 - ACUTE KIDNEY FAILURE, UNSPECIFIED (2) Abdominal pain Code(s): R10.9 - UNSPECIFIED ABDOMINAL PAIN Qualifiers: Abdominal location: unspecified location Qualified Code(s): R10.9 - Unspecified abdominal pain (3) Cholecystitis Code(s): K81.9 - CHOLECYSTITIS, UNSPECIFIED Assessment/Plan Current Medications Generic Name Dose Route Start Last Admin Trade Name Freq PRN Reason Stop Dose Admin Acetaminophen 650 mg 12/09/17 03:57 Tylenol - PO Q6H PRN FEVER Dextrose/Sodium Chloride 1,000 mls @ 75 mls/hr 12/09/17 04:00 12/09/17 04:28 D5-1/2ns - IV 75 mls/hr ASDIR JOSE ENRIQUE Administration Piperacillin Sod/Tazobactam 50 mls @ 100 mls/hr 12/10/17 18:00 Sod 2.25 gm/ Dextrose IVPB Q8H-IV JOSE ENRIQUE Protocol Piperacillin Sod/Tazobactam 50 mls @ 100 mls/hr 12/09/17 18:00 Sod 2.25 gm/ Dextrose IVPB 12/10/17 10:29 Q8H-IV JOSE ENRIQUE Protocol Losartan Potassium 50 mg 12/09/17 10:00 12/09/17 09:48 Cozaar - PO Not Given DAILY JOSE ENRIQUE Morphine Sulfate 4 mg 12/09/17 03:55 12/09/17 11:50 Morphine Sulfate IVPUSH 4 mg Q6H PRN Administration PAIN 4-6 Ondansetron HCl 4 mg 12/09/17 03:57 Zofran Injection IVPUSH Q8H PRN NAUSEA Selected Entries 12/09/17 12:45 Blood Pressure 135/94 Impression 1. SETH 2. cholecystitis 3. HTN 4. sepsis 5. fever 6. renal cysts 7. 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
[2017-12-09] MEDS ORDERED: ACETAMINOPHEN 1000 MG/100 ML VIAL (NON FORMULARY) IVPB ONE (13:00)
--- NOTE | 2017-12-09 14:10 | CON.ID ---
Consult - History of Present Illness History of Present Illness: Asked to evaluate this 82 y.o. female with PMH of HLD and HTN presenting with c/ o mainly RUQ/epigastric pain for the past 2 days associated with nausea and vomiting episodes. In the ER pt noted to have leukocytosis, fever, and elevated BUN/Creatinine. Chart, labs, and imaging have been evaluated. CT Abd/Pelvis revealed a distended GB with thickened wall and pericholecystic fluid and large calculi. Pt is now s/p biliary drain placement, noted to have fever > 102F and increasing wbc count (20K). She appears to be slightly confused and not a completely reliable source of information at this this point. She is alert and without acute distress. States she has RUQ pain but denies recent shortness of breath/cough/chest pain/dysuria. - History Source History Provided By: Patient, Medical Record Limitations to Obtaining History: No Limitations - Past Medical History Cardio/Vascular: Yes: HTN, Hyperlipdemia Reproductive: Yes: Fibroids ...LMP Comment: post menopausal - Past Surgical History Past Surgical History: Yes: Cystectomy (ovarian cyst) - Smoking History Smoking history: Never smoked Home Medications - Allergies Allergies/Adverse Reactions: Allergies Allergy/AdvReac Type Severity Reaction Status Date / Time strawberry Allergy Verified 12/08/17 16:55 - Home Medications Home Medications: Ambulatory Orders Atorvastatin Ca [Lipitor] 10 mg PO HS 12/08/17 Hydrochlorothiazide [Hctz -] 25 mg PO DAILY 12/08/17 Losartan Potassium 50 mg PO DAILY 12/08/17 Review of Systems Findings/Remarks: pt slightly confused - Review of Systems Constitutional: reports: Fever. denies: No Symptoms, Chills, Diaphoresis, Lethargy, Loss of Appetite, Malaise, Night Sweats, Unintentional Wgt. Loss, Weakness, Other Eyes: reports: No Symptoms. denies: Blind Spots, Blurred Vision, Double Vision , Eye Pain, Floaters, Photophobia, Recent Change in Vision, Other HENT: reports: No Symptoms. denies: Difficult Swallowing, Ear Discharge, Ear Pain, Epistaxis, Gingival Bleeding, Hearing Loss, Mouth Swelling, Nasal Congestion, Ocular Prosthesis, Throat Pain, Toothache, Ringing in Ears, Other Neck: reports: No Symptoms. denies: Decreased ROM, Lumps, Pain on Movement, Stiffness, Swollen Glands, Tenderness, Other Cardiovascular: reports: No Symptoms. denies: Chest Pain, Edema, Palpitations, Shortness of Breath, Other Respiratory: reports: No Symptoms. denies: Cough, Exercise Intolerance, Hemoptysis, Orthopnea, PND, Snoring, SOB, SOB on Exertion, Wheezing, Other Gastrointestinal: reports: Abdominal Pain (RUQ). denies: No Symptoms, Bloating , Constipation, Diarrhea, Dysphagia, Indigestion, Melena, Nausea, Rectal Bleeding, Vomiting, Vomiting Blood, Other Genitourinary: reports: No Symptoms. denies: Burning, Discharge, Dysuria, Flank Pain, Frequency, Hematuria, Incontinence, Lesions, Menses, Pain, Testicular Mass, Testicular Pain, Testicular Swelling, Urgency, Vaginal Bleeding , Other Breasts: reports: No Symptoms Reported Musculoskeletal: reports: No Symptoms. denies: Back Pain, Crepitus, Decreased ROM, Extremity Pain, Joint Pain, Joint Swelling, Muscle Pain, Muscle Cramps, Muscle Weakness, Other Integumentary: reports: No Symptoms. denies: Blister, Bruising, Change in Color , Eczema, Erythema, Incision, Lesions, Lump, Pallor, Pruritis, Rash, Wound, Other Neurological: reports: Confusion Endocrine: reports: No Symptoms. denies: Excessive Sweating, Flushing, Increased Hunger, Increased Thirst, Intolerance to Cold, Intolerance to Heat, Unexplained Weight Gain, Unexplained Weight Loss, Other Hematology/Lymphatic: reports: No Symptoms. denies: Easily Bruised, Excessive Bleeding, Swollen Glands, Other Psychiatric: reports: No Symptoms. denies: Altered Sleep Pattern, Anxiety, Depression, Hallucinations, Panic, Paranoia, Suicidal, Other Physical Exam Vital Signs: Vital Signs Temperature 102.1 F H 12/09/17 12:45 Pulse Rate 138 H 12/09/17 12:45 Respiratory Rate 24 12/09/17 12:45 Blood Pressure 135/94 12/09/17 12:45 O2 Sat by Pulse Oximetry (%) 100 12/09/17 10:59 Constitutional: Yes: No Distress, Calm Eyes: Yes: Conjunctiva Clear HENT: Yes: Atraumatic Neck: Yes: Supple Cardiovascular: Yes: Regular Rate and Rhythm Respiratory: Yes: CTA Bilaterally (poor inspiratory effort) Gastrointestinal: Yes: Normal Bowel Sounds, Soft, Tenderness (RUQ with deep palp ) Musculoskeletal: Yes: WNL Extremities: Yes: WNL Edema: No Integumentary: Yes: WNL Wound/Incision: Yes: Other (RUQ drain with semipurulent bilious fluid) Neurological: Yes: Alert, Confusion Labs: CBC, BMP 12/09/17 05:55 12/09/17 05:55 Laboratory Tests 12/08/17 12/08/17 12/08/17 16:00 16:00 16:00 WBC 26.3 H RBC 4.97 Hgb 15.0 Hct 44.3 MCV 89.1 MCH 30.1 MCHC 33.8 RDW 14.9 Plt Count 454 H MPV 7.8 Absolute Neuts (auto) 24.6 H Neutrophils % 93.4 H Neutrophils % (Manual) 87.0 H Band Neutrophils % 5.0 Lymphocytes % 1.7 L Lymphocytes % (Manual) 6.0 L Monocytes % 4.4 Monocytes % (Manual) 2 L Eosinophils % 0.0 Eosinophils % (Manual) 0.0 Basophils % 0.5 Basophils % (Manual) 0.0 Myelocytes % (Man) Promyelocytes % (Man) Blast Cells % (Manual) Nucleated RBC % 0 Metamyelocytes Hypochromia Platelet Estimate Adequate Polychromasia Poikilocytosis Anisocytosis Microcytosis Macrocytosis PT with INR 13.50 H INR 1.19 H Sodium Potassium Chloride Carbon Dioxide Anion Gap BUN Creatinine Creat Clearance w eGFR Random Glucose Lactic Acid Calcium Total Bilirubin AST ALT Alkaline Phosphatase Creatine Kinase 142 Troponin I < 0.02 Total Protein Albumin Lipase Urine Color Urine Appearance Urine pH Ur Specific [place] Urine Protein Urine Glucose (UA) Urine Ketones Urine Blood Urine Nitrite Urine Bilirubin Urine Urobilinogen Ur Leukocyte Esterase Urine WBC (Auto) Urine RBC (Auto) Ur Epithelial Cells Urine Bacteria Urine Mucus Anti-A Titer Blood Type Antibody Screen 12/08/17 12/08/17 12/08/17 16:00 16:00 17:40 WBC RBC Hgb Hct MCV MCH MCHC RDW Plt Count MPV Absolute Neuts (auto) Neutrophils % Neutrophils % (Manual) Band Neutrophils % Lymphocytes % Lymphocytes % (Manual) Monocytes % Monocytes % (Manual) Eosinophils % Eosinophils % (Manual) Basophils % Basophils % (Manual) Myelocytes % (Man) Promyelocytes % (Man) Blast Cells % (Manual) Nucleated RBC % Metamyelocytes Hypochromia Platelet Estimate Polychromasia Poikilocytosis Anisocytosis Microcytosis Macrocytosis PT with INR INR Sodium 132 L Potassium 3.3 L Chloride 91 L Carbon Dioxide 25 Anion Gap 16 BUN 40 H Creatinine 2.2 H Creat Clearance w eGFR 21.48 Random Glucose 94 Lactic Acid Calcium 9.1 Total Bilirubin 1.6 H AST 38 H ALT 89 H Alkaline Phosphatase 113 Creatine Kinase Troponin I Total Protein 7.9 Albumin 3.1 L Lipase 116 Urine Color [place] Urine Appearance Turbid Urine pH 5.0 Ur Specific [place] 1.019 Urine Protein 1+ H Urine Glucose (UA) Negative Urine Ketones Negative Urine Blood Negative Urine Nitrite Negative Urine Bilirubin Negative Urine Urobilinogen 4.0 e.u/dl H Ur Leukocyte Esterase Trace Urine WBC (Auto) 30 Urine RBC (Auto) None Ur Epithelial Cells Many Urine Bacteria Moderate Urine Mucus Moderate Anti-A Titer Cancelled Blood Type Cancelled Antibody Screen Cancelled 12/08/17 12/08/17 12/08/17 18:30 22:30 22:30 WBC 22.6 H RBC 4.57 Hgb 13.8 Hct 40.9 MCV 89.5 MCH 30.3 MCHC 33.8 RDW 14.9 Plt Count 410 MPV 7.9 Absolute Neuts (auto) 20.8 H Neutrophils % 91.9 H Neutrophils % (Manual) 87.0 H Band Neutrophils % 3.0 Lymphocytes % 2.5 L D Lymphocytes % (Manual) 5.0 L Monocytes % 5.2 Monocytes % (Manual) 3 L Eosinophils % 0.0 Eosinophils % (Manual) 0.0 Basophils % 0.4 Basophils % (Manual) 0.0 Myelocytes % (Man) Promyelocytes % (Man) Blast Cells % (Manual) Nucleated RBC % 0 Metamyelocytes Hypochromia Platelet Estimate Adequate Polychromasia Poikilocytosis Anisocytosis Microcytosis Macrocytosis PT with INR INR Sodium 132 L Potassium 3.3 L Chloride 91 L Carbon Dioxide 30 Anion Gap 11 BUN 46 H Creatinine 2.3 H Creat Clearance w eGFR 20.40 Random Glucose 115 H Lactic Acid 1.1 Calcium 8.5 Total Bilirubin 0.9 AST 27 ALT 67 Alkaline Phosphatase 109 Creatine Kinase Troponin I Total Protein 6.7 Albumin 2.6 L Lipase Urine Color Urine Appearance Urine pH Ur Specific [place] Urine Protein Urine Glucose (UA) Urine Ketones Urine Blood Urine Nitrite Urine Bilirubin Urine Urobilinogen Ur Leukocyte Esterase Urine WBC (Auto) Urine RBC (Auto) Ur Epithelial Cells Urine Bacteria Urine Mucus Anti-A Titer Blood Type Antibody Screen 12/08/17 12/09/17 12/09/17 22:30 05:55 05:55 WBC 18.4 H RBC 4.55 Hgb 13.7 Hct 40.8 MCV 89.5 MCH 30.1 MCHC 33.6 RDW 14.6 Plt Count 332 MPV 8.0 Absolute Neuts (auto) 17.1 H Neutrophils % 93.0 H Neutrophils % (Manual) 89.0 H Band Neutrophils % 3.0 Lymphocytes % 2.1 L Lymphocytes % (Manual) 3.0 L D Monocytes % 4.7 Monocytes % (Manual) 2 L Eosinophils % 0.0 Eosinophils % (Manual) 0.0 Basophils % 0.2 Basophils % (Manual) 0.0 Myelocytes % (Man) 3 H Promyelocytes % (Man) 0 Blast Cells % (Manual) 0 Nucleated RBC % 0 Metamyelocytes 0 Hypochromia 0 Platelet Estimate Normal Polychromasia 1+ Poikilocytosis 1+ Anisocytosis 1+ Microcytosis 1+ Macrocytosis 0 PT with INR INR Sodium 132 L Potassium 3.5 Chloride 95 L Carbon Dioxide 25 Anion Gap 12 BUN 45 H Creatinine 2.0 H Creat Clearance w eGFR 23.97 Random Glucose 98 Lactic Acid 1.1 Calcium 8.0 L Total Bilirubin 0.7 AST 25 ALT 55 Alkaline Phosphatase 106 Creatine Kinase Troponin I Total Protein 6.0 L Albumin 2.3 L Lipase Urine Color Urine Appearance Urine pH Ur Specific [place] Urine Protein Urine Glucose (UA) Urine Ketones Urine Blood Urine Nitrite Urine Bilirubin Urine Urobilinogen Ur Leukocyte Esterase Urine WBC (Auto) Urine RBC (Auto) Ur Epithelial Cells Urine Bacteria Urine Mucus Anti-A Titer Blood Type Antibody Screen Blood/RUQ drain cultures pending u/a: trace leuk esterase, 30 wbc Imaging - Results Chest X-ray: Report Reviewed Cat Scan: Report Reviewed Ultrasound: Report Reviewed Assessment/Plan 82 y.o. female with PMH of HTN and HLD presenting with upper abdominal pain, nausea and vomiting x 2 days. Imaging consistent with GB distention, pericholecystic fluid and large calculi as well as possible RLL pulmonary consolidation Sepsis Acute Cholecystitis s/p biliary drain placement Questionable PNA Sepsis Leukocytosis Fever SETH -- d/c Levaquin and Flagyl -- start Zosyn empirically for now, adjust based on cultures -- f/u blood and biliary fluid cultures -- send urine culture -- monitor temperatures, wbc trend -- monitor renal function -- surgical f/u will follow Thank you
[2017-12-09 17:11] VITALS: BMI 35.6
[2017-12-09] MEDS ORDERED: SODIUM CHLORIDE 500 ML IV STA (17:15)
[2017-12-09] MEDS ORDERED: KCL 10 MEQ IVPB 10 MEQ/100 ML INFUS.BAG IVPB SCH (17:15)
[2017-12-09] MEDS ORDERED: PIPERACILLIN/TAZOBACTAM 2.25 GM VIAL IVPB ONE (18:26)
[2017-12-09] MEDS ORDERED: DEXTROSE 5%-WATER - 50 ML IVPB ONE (18:26)
[2017-12-09] MEDS: PIPERACILLIN/TAZOB 2.25 GM 2.25 GM in DEXTROSE 5%-WATER - 50 ML IVPB SCH (18:35)
[2017-12-09] MEDS: DEXTROSE 5%-NORMAL SALINE 1,000 ML IV SCH (18:38)
[2017-12-09 22:25] LABS: URINE APPEARANCE CLEAR; URINE BILIRUBIN NEGATIVE (<2.0 mg/dL); URINE COLOR YELLOW; URINE GLUCOSE (UA) NEGATIVE (NEGATIVE); URINE KETONE NEGATIVE (NEGATIVE); URINE LEUK ESTERASE NEGATIVE (NEGATIVE); URINE NITRITE NEGATIVE (NEGATIVE); URINE PROTEIN NEGATIVE (NEGATIVE); URINE UROBILINOGEN NEGATIVE mg/dL (0.2-1.0)
[2017-12-09 22:26] LABS: EPI CELLS RARE /HPF (FEW)
[2017-12-10] MEDS ORDERED: DEXTROSE 5%-WATER - 50 ML IVPB ONE ×2 (00:44→09:05)
[2017-12-10] MEDS ORDERED: PIPERACILLIN/TAZOBACTAM 2.25 GM VIAL IVPB ONE ×2 (00:44→09:05)
[2017-12-10] MEDS: PIPERACILLIN/TAZOB 2.25 GM 2.25 GM in DEXTROSE 5%-WATER - 50 ML IVPB SCH ×2 (02:39→09:08)
[2017-12-10] MEDS: DEXTROSE 5%-NORMAL SALINE 1,000 ML IV SCH ×2 (06:03→12:11)
[2017-12-10 07:29] LABS: BASO % 0.1 % (0-2.0); EOS % 0.1 % (0-4.5); HEMATOCRIT 39.5 % (32.4-45.2); HEMOGLOBIN 13.1 GM/dL (10.7-15.3); LYMPH % 2.4 % (8-40); MCH 29.7 pg (25.7-33.7); MCHC 33.3 g/dl (32.0-36.0); MEAN CELL VOLUME 89.2 fl (80-96); MEAN PLT VOLUME 7.7 fl (7.5-11.1); MONO % 5.6 % (3.8-10.2); NEUT % 91.8 % (42.8-82.8); PLATELET COUNT 323 K/MM3 (134-434); RBC 4.43 M/mm3 (3.60-5.2); RDW 14.9 % (11.6-15.6); WHITE BLOOD COUNT 13.6 K/mm3 (4.0-10.0)
[2017-12-10 08:15] LABS: ALBUMIN 1.9 g/dl (3.4-5.0); ANION GAP 13 MMOL/L (8-16); BLOOD UREA NITROGEN 26 mg/dL (7-18); CALCIUM 8.4 mg/dL (8.5-10.1); CHLORIDE 102 mmol/L (98-107); CO2 24 mmol/L (21-32); CREATININE 1.4 mg/dL (0.55-1.02); GLUCOSE,RANDOM 115 mg/dL (74-106); POTASSIUM 3.2 mmol/L (3.5-5.1); SGOT/AST 29 U/L (15-37); SGPT/ALT 40 U/L (12-78); SODIUM 139 mmol/L (136-145)
[2017-12-10 08:17] LABS: ALK PHOS 125 U/L (45-117); BILIRUBIN,TOTAL 0.6 mg/dL (0.2-1.0); TOT PROT 5.5 g/dl (6.4-8.2)
[2017-12-10] MEDS: morphine SULFATE 4 MG/ML VIAL IVPUSH PRN ×2 (09:11→17:33)
[2017-12-10 10:24] LABS: ACANTHOCYTES 0; ANISOCYTOSIS 0; HELMET CELLS 0; HOWELL-JOLLY BODIES 0; MACROCYTOSIS 0; OVALOCYTE 0; PLATELET ESTIMATE NORMAL; ROULEAU 0; SICKELED CELLS 0; TARGET CELLS 0; TEAR DROP CELLS 0; TOXIC GRANULATION 0
--- NOTE | 2017-12-10 11:46 | PN ---
Progress Note, Physician History of Present Illness: Pt seen and examined at bedside. She feels a little better today. She denies shortness of breath. - Current Medication List Current Medications: Active Medications Acetaminophen (Tylenol -) 650 mg PO Q6H PRN PRN Reason: FEVER Piperacillin Sod/Tazobactam (Sod 2.25 gm/ Dextrose) 50 mls @ 100 mls/hr IVPB Q8H-IV JOSE ENRIQUE; Protocol Dextrose/Sodium Chloride (D5-Ns -) 1,000 mls @ 100 mls/hr IV ASDIR JOSE ENRIQUE Last Admin: 12/10/17 06:03 Dose: 100 mls/hr Morphine Sulfate (Morphine Sulfate) 4 mg IVPUSH Q6H PRN PRN Reason: PAIN 4-6 Last Admin: 12/10/17 09:11 Dose: 4 mg Ondansetron HCl (Zofran Injection) 4 mg IVPUSH Q8H PRN PRN Reason: NAUSEA - Objective Vital Signs: Vital Signs Temperature 98.3 F 12/10/17 06:00 Pulse Rate 100 H 12/10/17 06:00 Respiratory Rate 18 12/10/17 06:00 Blood Pressure 129/66 12/10/17 06:00 O2 Sat by Pulse Oximetry (%) 93 L 12/09/17 16:00 Constitutional: Yes: Calm Eyes: Yes: Conjunctiva Clear HENT: Yes: Atraumatic Neck: Yes: Supple Cardiovascular: Yes: S1, S2 Respiratory: Yes: CTA Bilaterally, On Nasal O2 Gastrointestinal: Yes: Tenderness, Other (biliary drain) Genitourinary: Yes: WNL Musculoskeletal: Yes: WNL Extremities: Yes: WNL Edema: No Neurological: Yes: Oriented Psychiatric: Yes: Oriented Labs: CBC, BMP 12/10/17 06:00 12/10/17 06:00 INR, PTT INR 1.19 (0.83-1.09) H 12/08/17 16:00 - ....Imaging Ultrasound: Report Reviewed Problem List - Problems (1) SETH (acute kidney injury) Code(s): N17.9 - ACUTE KIDNEY FAILURE, UNSPECIFIED (2) Abdominal pain Code(s): R10.9 - UNSPECIFIED ABDOMINAL PAIN Qualifiers: Abdominal location: unspecified location Qualified Code(s): R10.9 - Unspecified abdominal pain (3) Cholecystitis Code(s): K81.9 - CHOLECYSTITIS, UNSPECIFIED Assessment/Plan Current Medications Generic Name Dose Route Start Last Admin Trade Name Freq PRN Reason Stop Dose Admin Acetaminophen 650 mg 12/09/17 03:57 Tylenol - PO Q6H PRN FEVER Piperacillin Sod/Tazobactam 50 mls @ 100 mls/hr 12/10/17 18:00 Sod 2.25 gm/ Dextrose IVPB Q8H-IV JOSE ENRIQUE Protocol Dextrose/Sodium Chloride 1,000 mls @ 100 mls/hr 12/09/17 17:15 12/10/17 06:03 D5-Ns - IV 100 mls/hr ASDIR JOSE ENRIQUE Administration Morphine Sulfate 4 mg 12/09/17 03:55 12/10/17 09:11 Morphine Sulfate IVPUSH 4 mg Q6H PRN Administration PAIN 4-6 Ondansetron HCl 4 mg 12/09/17 03:57 Zofran Injection IVPUSH Q8H PRN NAUSEA Impression 1. SETH 2. cholecystitis 3. HTN 4. sepsis 5. fever 6. renal cysts 7. hypokalemia Plan - replace potassium - check mag - cont with fluids - renal function is improving - renal ultrasound reviewed, pt has an atrophic left kidney - cont abx per ID - likely seth from sepsis and pre-renal disease - replace potassium - will follow
[2017-12-10] MEDS: KCL 10 MEQ IVPB 10 MEQ/100 ML INFUS.BAG IVPB SCH ×3 (13:52→17:03)
--- NOTE | 2017-12-10 14:12 | PN ---
Progress Note, Physician History of Present Illness: Pt feels well but with mild RUQ discomfort at site of drain. She is afebrile, alert, and not confused today. Has no specific other complaints. - Current Medication List Current Medications: Active Medications Acetaminophen (Tylenol -) 650 mg PO Q6H PRN PRN Reason: FEVER Potassium Chloride (Potassium Chloride 10 Meq Premix Ivpb -) 10 meq in 100 mls @ 100 mls/hr IVPB Q60M JOSE ENRIQUE Stop: 12/10/17 14:59 Last Admin: 12/10/17 13:52 Dose: 100 mls/hr Dextrose/Sodium Chloride (D5-Ns -) 1,000 mls @ 90 mls/hr IV ASDIR JOSE ENRIQUE Last Admin: 12/10/17 12:11 Dose: 90 mls/hr Morphine Sulfate (Morphine Sulfate) 4 mg IVPUSH Q6H PRN PRN Reason: PAIN 4-6 Last Admin: 12/10/17 09:11 Dose: 4 mg Ondansetron HCl (Zofran Injection) 4 mg IVPUSH Q8H PRN PRN Reason: NAUSEA - Objective Vital Signs: Vital Signs Temperature 98.3 F 12/10/17 06:00 Pulse Rate 100 H 12/10/17 06:00 Respiratory Rate 18 12/10/17 06:00 Blood Pressure 129/66 12/10/17 06:00 O2 Sat by Pulse Oximetry (%) 93 L 12/09/17 16:00 Constitutional: Yes: No Distress, Calm Neck: Yes: Supple Cardiovascular: Yes: Regular Rate and Rhythm Respiratory: Yes: CTA Bilaterally Gastrointestinal: Yes: Normal Bowel Sounds, Soft, Abdomen, Obese Genitourinary: Yes: WNL Musculoskeletal: Yes: WNL Extremities: Yes: WNL Integumentary: Yes: WNL Wound/Incision: Yes: Other (RUQ drain with semipurulent bilious fluid) Neurological: Yes: Alert, Oriented Labs: CBC, BMP 12/10/17 06:00 12/10/17 06:00 INR, PTT INR 1.19 (0.83-1.09) H 12/08/17 16:00 Microbiology 12/09/17 11:00 Body Fluid - Other Gram Stain - Final 12/09/17 11:00 Body Fluid - Other Body Fluid Culture - Preliminary Lactose Fermenting Neg Bacilli 12/08/17 18:30 Blood - Peripheral Venous Blood Culture - Preliminary NO GROWTH OBTAINED AFTER 24 HOURS, INCUBATION TO CONTINUE FOR 4 DAYS. 12/08/17 18:30 Blood - Peripheral Venous Blood Culture - Preliminary NO GROWTH OBTAINED AFTER 24 HOURS, INCUBATION TO CONTINUE FOR 4 DAYS. Assessment/Plan 82 y.o. female with PMH of HTN and HLD presenting with upper abdominal pain, nausea and vomiting x 2 days. Imaging consistent with GB distention, pericholecystic fluid and large calculi as well as possible RLL pulmonary consolidation Sepsis Acute Cholecystitis s/p biliary drain placement Leukocytosis - improved Fever - now afebrile SETH- resolving - f/u biliary fluid culture isolate - growing GNR, blood cultures neg 24hrs -- monitor temperatures, wbc trend - improving -- Zosyn dose adjusted, will de-escalate once culture results available -- surgical f/u pt afebrile, alert, without acute distress
[2017-12-10] MEDS ORDERED: PIPERACILLIN/TAZOBACTAM 4.5 GM VIAL IVPB ONE (17:14)
[2017-12-10] MEDS ORDERED: DEXTROSE 5%-WATER 100 ML IVPB ONE (17:14)
[2017-12-10] MEDS: PIPERACILLIN/TAZOB 4.5 GM 4.5 GM in DEXTROSE 5%-WATER 100 ML IVPB SCH (17:33)
[2017-12-10] MEDS ORDERED: PIPERACILLIN/TAZOB 2.25 GM 2.25 GM in DEXTROSE 5%-WATER - 50 ML IVPB SCH (18:00)
--- NOTE | 2017-12-10 18:05 | PN ---
Progress Note, Physician Chief Complaint: acute cholecystitis History of Present Illness: Underwent percutaneous cholecystostomy yesterday. C/O catheter site pain, epigastric pain no longer present - Current Medication List Current Medications: Active Medications Acetaminophen (Tylenol -) 650 mg PO Q6H PRN PRN Reason: FEVER Dextrose/Sodium Chloride (D5-Ns -) 1,000 mls @ 90 mls/hr IV ASDIR JOSE ENRIQUE Last Admin: 12/10/17 12:11 Dose: 90 mls/hr Piperacillin Sod/Tazobactam (Sod 4.5 gm/ Dextrose) 100 mls @ 200 mls/hr IVPB Q8H-IV JOSE ENRIQUE; Protocol Last Admin: 12/10/17 17:33 Dose: 200 mls/hr Morphine Sulfate (Morphine Sulfate) 4 mg IVPUSH Q6H PRN PRN Reason: PAIN 4-6 Last Admin: 12/10/17 17:33 Dose: 4 mg Ondansetron HCl (Zofran Injection) 4 mg IVPUSH Q8H PRN PRN Reason: NAUSEA - Objective Vital Signs: Vital Signs Temperature 98.8 F 12/10/17 14:22 Pulse Rate 101 H 12/10/17 14:22 Respiratory Rate 20 12/10/17 08:30 Blood Pressure 126/84 12/10/17 14:22 O2 Sat by Pulse Oximetry (%) 93 L 12/10/17 09:00 Constitutional: Yes: No Distress, Calm HENT: Yes: Normocephalic Neck: Yes: Supple Cardiovascular: Yes: Regular Rate and Rhythm Respiratory: Yes: CTA Bilaterally Gastrointestinal: Yes: Soft, Tenderness (over cholecystostomy site, drainage brownish and sludgy) ...Rectal Exam: Yes: Deferred Labs: CBC, BMP 12/10/17 06:00 12/10/17 06:00 INR, PTT INR 1.19 (0.83-1.09) H 12/08/17 16:00 Problem List - Problems (1) Cholecystitis Assessment/Plan: May start clear liquid diet and advance as tolerated continue cholecystostomy tube drainage continue antibiotics interval cholecystectomy 6 to 8 weeks post cholecystostomy Code(s): K81.9 - CHOLECYSTITIS, UNSPECIFIED
--- NOTE | 2017-12-10 23:53 | PN ---
Progress Note, Physician - Current Medication List Current Medications: Active Medications Acetaminophen (Tylenol -) 650 mg PO Q6H PRN PRN Reason: FEVER Dextrose/Sodium Chloride (D5-Ns -) 1,000 mls @ 90 mls/hr IV ASDIR JOSE ENRIQUE Last Admin: 12/10/17 12:11 Dose: 90 mls/hr Piperacillin Sod/Tazobactam (Sod 4.5 gm/ Dextrose) 100 mls @ 200 mls/hr IVPB Q8H-IV JOSE ENRIQUE; Protocol Last Admin: 12/10/17 17:33 Dose: 200 mls/hr Morphine Sulfate (Morphine Sulfate) 4 mg IVPUSH Q6H PRN PRN Reason: PAIN 4-6 Last Admin: 12/10/17 17:33 Dose: 4 mg Ondansetron HCl (Zofran Injection) 4 mg IVPUSH Q8H PRN PRN Reason: NAUSEA - Objective Vital Signs: Vital Signs Temperature 97.8 F 12/10/17 22:51 Pulse Rate 76 12/10/17 22:51 Respiratory Rate 20 12/10/17 22:51 Blood Pressure 120/80 12/10/17 22:51 O2 Sat by Pulse Oximetry (%) 93 L 12/10/17 09:00 Labs: CBC, BMP 12/10/17 06:00 12/10/17 06:00 INR, PTT INR 1.19 (0.83-1.09) H 12/08/17 16:00
[2017-12-11] MEDS ORDERED: PIPERACILLIN/TAZOBACTAM 4.5 GM VIAL IVPB ONE ×2 (02:42→09:11)
[2017-12-11] MEDS ORDERED: DEXTROSE 5%-WATER 100 ML IVPB ONE ×2 (02:42→09:12)
[2017-12-11] MEDS: PIPERACILLIN/TAZOB 4.5 GM 4.5 GM in DEXTROSE 5%-WATER 100 ML IVPB SCH ×2 (02:49→09:17)
[2017-12-11] MEDS: morphine SULFATE 4 MG/ML VIAL IVPUSH PRN ×2 (07:27→21:44)
[2017-12-11 07:53] LABS: BASO % 0.3 % (0-2.0); EOS % 0.5 % (0-4.5); HEMATOCRIT 39.7 % (32.4-45.2); HEMOGLOBIN 13.1 GM/dL (10.7-15.3); LYMPH % 5.3 % (8-40); MCH 29.5 pg (25.7-33.7); MEAN CELL VOLUME 89.6 fl (80-96); MEAN PLT VOLUME 7.7 fl (7.5-11.1); MONO % 8.1 % (3.8-10.2); NEUT % 85.8 % (42.8-82.8); PLATELET COUNT 348 K/MM3 (134-434); RBC 4.43 M/mm3 (3.60-5.2); RDW 15.2 % (11.6-15.6); WHITE BLOOD COUNT 12.2 K/mm3 (4.0-10.0)
[2017-12-11 08:58] LABS: CALCIUM 8.4 mg/dL (8.5-10.1); CHLORIDE 106 mmol/L (98-107); POTASSIUM 3.5 mmol/L (3.5-5.1); SODIUM 141 mmol/L (136-145)
[2017-12-11 09:05] LABS: ALBUMIN 1.9 g/dl (3.4-5.0); ALK PHOS 145 U/L (45-117); ANION GAP 11 MMOL/L (8-16); BILIRUBIN,TOTAL 0.5 mg/dL (0.2-1.0); BLOOD UREA NITROGEN 26 mg/dL (7-18); CO2 24 mmol/L (21-32); CREATININE 1.4 mg/dL (0.55-1.02); GLUCOSE,RANDOM 116 mg/dL (74-106); MAGNESIUM 2.2 mg/dL (1.8-2.4); SGOT/AST 25 U/L (15-37); SGPT/ALT 33 U/L (12-78); TOT PROT 5.4 g/dl (6.4-8.2)
[2017-12-11] MEDS: DEXTROSE 5%-NORMAL SALINE 1,000 ML IV SCH ×2 (09:18→17:35)
[2017-12-11 11:56] LABS: ACANTHOCYTES 0; ANISOCYTOSIS 0; HELMET CELLS 0; HOWELL-JOLLY BODIES 0; MACROCYTOSIS 0; OVALOCYTE 0; PLATELET ESTIMATE NORMAL; ROULEAU 0; SICKELED CELLS 0; TARGET CELLS 0; TEAR DROP CELLS 0; TOXIC GRANULATION 0
--- NOTE | 2017-12-11 12:36 | PN ---
Progress Note, Physician History of Present Illness: Pt seen and examined at bedside. She is awake and alert. She is out of bed to chair. She is tolerating clears so far. - Current Medication List Current Medications: Active Medications Acetaminophen (Tylenol -) 650 mg PO Q6H PRN PRN Reason: FEVER Dextrose/Sodium Chloride (D5-Ns -) 1,000 mls @ 90 mls/hr IV ASDIR JOSE ENRIQUE Last Admin: 12/11/17 09:18 Dose: 90 mls/hr Piperacillin Sod/Tazobactam (Sod 4.5 gm/ Dextrose) 100 mls @ 200 mls/hr IVPB Q8H-IV JOSE ENRIQUE; Protocol Last Admin: 12/11/17 09:17 Dose: 200 mls/hr Morphine Sulfate (Morphine Sulfate) 4 mg IVPUSH Q6H PRN PRN Reason: PAIN 4-6 Last Admin: 12/11/17 07:27 Dose: 4 mg Ondansetron HCl (Zofran Injection) 4 mg IVPUSH Q8H PRN PRN Reason: NAUSEA - Objective Vital Signs: Vital Signs Temperature 97.9 F 12/11/17 10:00 Pulse Rate 98 H 12/11/17 10:00 Respiratory Rate 20 12/11/17 10:00 Blood Pressure 135/75 12/11/17 10:00 O2 Sat by Pulse Oximetry (%) 96 12/11/17 08:56 Constitutional: Yes: Calm Eyes: Yes: Conjunctiva Clear HENT: Yes: Atraumatic Neck: Yes: Supple Cardiovascular: Yes: S1, S2 Respiratory: Yes: CTA Bilaterally Gastrointestinal: Yes: Soft, Other (biliary drain) Genitourinary: Yes: WNL Musculoskeletal: Yes: WNL Edema: No Neurological: Yes: Oriented Psychiatric: Yes: Oriented Labs: CBC, BMP 12/11/17 06:20 12/11/17 06:20 INR, PTT INR 1.19 (0.83-1.09) H 12/08/17 16:00 Problem List - Problems (1) SETH (acute kidney injury) Code(s): N17.9 - ACUTE KIDNEY FAILURE, UNSPECIFIED (2) Abdominal pain Code(s): R10.9 - UNSPECIFIED ABDOMINAL PAIN Qualifiers: Abdominal location: unspecified location Qualified Code(s): R10.9 - Unspecified abdominal pain (3) Cholecystitis Code(s): K81.9 - CHOLECYSTITIS, UNSPECIFIED Assessment/Plan Current Medications Generic Name Dose Route Start Last Admin Trade Name Freq PRN Reason Stop Dose Admin Acetaminophen 650 mg 12/09/17 03:57 Tylenol - PO Q6H PRN FEVER Dextrose/Sodium Chloride 1,000 mls @ 90 mls/hr 12/10/17 11:47 12/11/17 09:18 D5-Ns - IV 90 mls/hr ASDIR JOSE ENRIQUE Administration Piperacillin Sod/Tazobactam 100 mls @ 200 mls/hr 12/10/17 18:00 12/11/17 09: 17 Sod 4.5 gm/ Dextrose IVPB 200 mls/hr Q8H-IV JOSE ENRIQUE Administration Protocol Morphine Sulfate 4 mg 12/09/17 03:55 12/11/17 07:27 Morphine Sulfate IVPUSH 4 mg Q6H PRN Administration PAIN 4-6 Ondansetron HCl 4 mg 12/09/17 03:57 Zofran Injection IVPUSH Q8H PRN NAUSEA Laboratory Tests 12/11/17 06:20 Magnesium 2.2 Impression 1. SETH 2. cholecystitis 3. HTN 4. sepsis 5. fever 6. renal cysts 7. hypokalemia 8. atrophic left kidney Plan - cont with fluids - pt tolerating clears - can decrease rate of fluids - repeat labs in am - will give a po dose of potassium - likely seth from sepsis and pre-renal disease - will follow
[2017-12-11] MEDS ORDERED: POTASSIUM CHLORIDE ORAL LIQUID 20 MEQ/15 ML PO ONE (12:45)
--- NOTE | 2017-12-11 12:54 | PN ---
Progress Note, Physician History of Present Illness: Pt appears to be doing well. Has mild tenderness in RUQ but afebrile, without other specific complaints. Is passing gas but no BM so far. On liquid diet. - Current Medication List Current Medications: Active Medications Acetaminophen (Tylenol -) 650 mg PO Q6H PRN PRN Reason: FEVER Piperacillin Sod/Tazobactam (Sod 4.5 gm/ Dextrose) 100 mls @ 200 mls/hr IVPB Q8H-IV JOSE ENRIQUE; Protocol Last Admin: 12/11/17 09:17 Dose: 200 mls/hr Dextrose/Sodium Chloride (D5-Ns -) 1,000 mls @ 65 mls/hr IV ASDIR JOSE ENRIQUE Morphine Sulfate (Morphine Sulfate) 4 mg IVPUSH Q6H PRN PRN Reason: PAIN 4-6 Last Admin: 12/11/17 07:27 Dose: 4 mg Ondansetron HCl (Zofran Injection) 4 mg IVPUSH Q8H PRN PRN Reason: NAUSEA - Objective Vital Signs: Vital Signs Temperature 97.9 F 12/11/17 10:00 Pulse Rate 98 H 12/11/17 10:00 Respiratory Rate 20 12/11/17 10:00 Blood Pressure 135/75 12/11/17 10:00 O2 Sat by Pulse Oximetry (%) 96 12/11/17 08:56 Constitutional: Yes: No Distress, Calm Cardiovascular: Yes: Regular Rate and Rhythm Respiratory: Yes: Regular Gastrointestinal: Yes: Normal Bowel Sounds, Soft, Other (RUQ cholecystostomy drain with semipurulent brown fluid) Genitourinary: Yes: WNL Extremities: Yes: WNL Integumentary: Yes: WNL Neurological: Yes: Alert Labs: CBC, BMP 12/11/17 06:20 12/11/17 06:20 INR, PTT INR 1.19 (0.83-1.09) H 12/08/17 16:00 Microbiology 12/09/17 11:00 Body Fluid - Other Gram Stain - Final 12/09/17 11:00 Body Fluid - Other Body Fluid Culture - Final Escherichia Coli 12/09/17 11:00 Body Fluid - Other Anaerobic Culture - Final 12/09/17 20:45 Urine - Urine Clean Catch Urine Culture - Final NO GROWTH OBTAINED 12/08/17 18:30 Blood - Peripheral Venous Blood Culture - Preliminary NO GROWTH OBTAINED AFTER 48 HOURS, INCUBATION TO CONTINUE FOR 3 DAYS. 12/08/17 18:30 Blood - Peripheral Venous Blood Culture - Preliminary NO GROWTH OBTAINED AFTER 48 HOURS, INCUBATION TO CONTINUE FOR 3 DAYS. Problem List - Problems (1) SETH (acute kidney injury) Code(s): N17.9 - ACUTE KIDNEY FAILURE, UNSPECIFIED (2) Abdominal pain Code(s): R10.9 - UNSPECIFIED ABDOMINAL PAIN Qualifiers: Abdominal location: unspecified location Qualified Code(s): R10.9 - Unspecified abdominal pain (3) Cholecystitis Code(s): K81.9 - CHOLECYSTITIS, UNSPECIFIED (4) Leukocytosis Code(s): D72.829 - ELEVATED WHITE BLOOD CELL COUNT, UNSPECIFIED Qualifiers: Leukocytosis type: unspecified Qualified Code(s): D72.829 - Elevated white blood cell count, unspecified Assessment/Plan 82 y.o. female with PMH of HTN and HLD presenting with upper abdominal pain, nausea and vomiting x 2 days. Imaging consistent with GB distention, pericholecystic fluid and large calculi as well as possible RLL pulmonary consolidation Sepsis Acute Cholecystitis s/p percutaneous cholecystostomy Leukocytosis - improved Fever - now afebrile SETH- improved -- fluid culture results note: E.coli isolated -- d/c Zosyn, start Levaquin and Flagyl IV -- if tolerates po, will switch to oral antibiotics -- pt afebrile, wbc trending towards normal -- continue monitor
[2017-12-11] MEDS ORDERED: DEXTROSE 5%-WATER - 50 ML IVPB ONE (14:39)
[2017-12-11] MEDS ORDERED: cefTRIAXone SODIUM 1 GM VIAL ONE (14:39)
[2017-12-11] MEDS: CEFTRIAXONE 1 GM in DEXTROSE 5%-WATER - 50 ML IVPB SCH (14:43)
--- NOTE | 2017-12-11 17:12 | PN ---
Progress Note (short form) - Note Progress Note: Still c/o cholecystostomy site pain Tolerated clear liquids Afebrile, VSS Abd: soft, mild RUQ tenderness at C-tube site, bilious sludgy drainage C/S: E. coli WBC: 12K A/P: Resolving sepsis - acute cholecystitis with superimposed pneumonia advance RUSS F/U as OP for interval cholecystectomy in 6 -8 weeks Problem List - Problems (1) Cholecystitis Code(s): K81.9 - CHOLECYSTITIS, UNSPECIFIED
--- NOTE | 2017-12-11 23:43 | PN ---
Progress Note, Physician - Current Medication List Current Medications: Active Medications Acetaminophen (Tylenol -) 650 mg PO Q6H PRN PRN Reason: FEVER Dextrose/Sodium Chloride (D5-Ns -) 1,000 mls @ 65 mls/hr IV ASDIR JOSE ENRIQUE Last Admin: 12/11/17 17:35 Dose: 65 mls/hr Ceftriaxone Sodium 1 gm/ (Dextrose) 50 mls @ 200 mls/hr IVPB DAILY JOSE ENRIQUE; Protocol Last Admin: 12/11/17 14:43 Dose: 200 mls/hr Metronidazole (Flagyl 500mg Premixed Ivpb -) 500 mg in 100 mls @ 100 mls/hr IVPB Q8H-IV JOSE ENRIQUE Last Admin: 12/11/17 17:35 Dose: 100 mls/hr Morphine Sulfate (Morphine Sulfate) 4 mg IVPUSH Q6H PRN PRN Reason: PAIN 4-6 Last Admin: 12/11/17 21:44 Dose: 4 mg Ondansetron HCl (Zofran Injection) 4 mg IVPUSH Q8H PRN PRN Reason: NAUSEA - Objective Vital Signs: Vital Signs Temperature 98.7 F 12/11/17 23:36 Pulse Rate 121 H 12/11/17 23:36 Respiratory Rate 20 12/11/17 23:36 Blood Pressure 129/74 12/11/17 23:36 O2 Sat by Pulse Oximetry (%) 96 12/11/17 20:20 Labs: CBC, BMP 12/11/17 06:20 12/11/17 06:20 INR, PTT INR 1.19 (0.83-1.09) H 12/08/17 16:00
[2017-12-12 07:48] LABS: BASO % 0.3 % (0-2.0); EOS % 0.9 % (0-4.5); HEMATOCRIT 40.6 % (32.4-45.2); HEMOGLOBIN 13.6 GM/dL (10.7-15.3); LYMPH % 6.5 % (8-40); MCH 30.2 pg (25.7-33.7); MCHC 33.4 g/dl (32.0-36.0); MEAN CELL VOLUME 90.4 fl (80-96); MEAN PLT VOLUME 7.4 fl (7.5-11.1); MONO % 8.4 % (3.8-10.2); NEUT % 83.9 % (42.8-82.8); PLATELET COUNT 369 K/MM3 (134-434); RBC 4.49 M/mm3 (3.60-5.2); WHITE BLOOD COUNT 11.8 K/mm3 (4.0-10.0)
[2017-12-12 08:29] LABS: CHLORIDE 107 mmol/L (98-107); POTASSIUM 3.8 mmol/L (3.5-5.1); SODIUM 141 mmol/L (136-145)
[2017-12-12 08:33] LABS: ALBUMIN 2.1 g/dl (3.4-5.0); ALK PHOS 148 U/L (45-117); ANION GAP 9 MMOL/L (8-16); BILIRUBIN,TOTAL 0.4 mg/dL (0.2-1.0); BLOOD UREA NITROGEN 28 mg/dL (7-18); CALCIUM 8.7 mg/dL (8.5-10.1); CO2 25 mmol/L (21-32); CREATININE 1.5 mg/dL (0.55-1.02); GLUCOSE,RANDOM 123 mg/dL (74-106); SGOT/AST 23 U/L (15-37); SGPT/ALT 30 U/L (13-61)
[2017-12-12] MEDS ORDERED: cefTRIAXone SODIUM 1 GM VIAL ONE (08:59)
[2017-12-12] MEDS ORDERED: DEXTROSE 5%-WATER - 50 ML IVPB ONE (09:00)
[2017-12-12] MEDS: CEFTRIAXONE 1 GM in DEXTROSE 5%-WATER - 50 ML IVPB SCH (09:20)
[2017-12-12] MEDS: DEXTROSE 5%-NORMAL SALINE 1,000 ML IV SCH (09:23)
[2017-12-12 09:43] LABS: ACANTHOCYTES 0; ANISOCYTOSIS 0; HELMET CELLS 0; HOWELL-JOLLY BODIES 0; MACROCYTOSIS 0; OVALOCYTE 0; PLATELET ESTIMATE NORMAL; ROULEAU 0; SICKELED CELLS 0; TARGET CELLS 0; TEAR DROP CELLS 0; TOXIC GRANULATION 0
--- NOTE | 2017-12-12 13:56 | PN ---
Progress Note, Physician History of Present Illness: Pt seen and examined at bedside. She is awake and alert. She denies shortness of breath. She says she is tolerating her diet so far. - Current Medication List Current Medications: Active Medications Acetaminophen (Tylenol -) 650 mg PO Q6H PRN PRN Reason: FEVER Dextrose/Sodium Chloride (D5-Ns -) 1,000 mls @ 65 mls/hr IV ASDIR JOSE ENRIQUE Last Admin: 12/12/17 09:23 Dose: 65 mls/hr Ceftriaxone Sodium 1 gm/ (Dextrose) 50 mls @ 200 mls/hr IVPB DAILY JOSE ENRIQUE; Protocol Last Admin: 12/12/17 09:20 Dose: 200 mls/hr Metronidazole (Flagyl 500mg Premixed Ivpb -) 500 mg in 100 mls @ 100 mls/hr IVPB Q8H-IV JOSE ENRIQUE Last Admin: 12/12/17 09:22 Dose: 100 mls/hr Ondansetron HCl (Zofran Injection) 4 mg IVPUSH Q8H PRN PRN Reason: NAUSEA - Objective Vital Signs: Vital Signs Temperature 98.0 F 12/12/17 10:00 Pulse Rate 91 H 12/12/17 10:00 Respiratory Rate 18 12/12/17 10:00 Blood Pressure 133/84 12/12/17 10:00 O2 Sat by Pulse Oximetry (%) 98 12/12/17 09:00 Constitutional: Yes: Calm Eyes: Yes: Conjunctiva Clear HENT: Yes: Atraumatic Neck: Yes: Supple Cardiovascular: Yes: S1, S2 Respiratory: Yes: CTA Bilaterally Gastrointestinal: Yes: Other (biliary drain) Genitourinary: Yes: WNL Musculoskeletal: Yes: WNL Edema: No Neurological: Yes: Oriented Psychiatric: Yes: Oriented Labs: CBC, BMP 12/12/17 07:23 12/12/17 07:23 INR, PTT INR 1.19 (0.83-1.09) H 12/08/17 16:00 Problem List - Problems (1) SETH (acute kidney injury) Code(s): N17.9 - ACUTE KIDNEY FAILURE, UNSPECIFIED (2) Abdominal pain Code(s): R10.9 - UNSPECIFIED ABDOMINAL PAIN Qualifiers: Abdominal location: unspecified location Qualified Code(s): R10.9 - Unspecified abdominal pain (3) Cholecystitis Code(s): K81.9 - CHOLECYSTITIS, UNSPECIFIED Assessment/Plan Current Medications Generic Name Dose Route Start Last Admin Trade Name Freq PRN Reason Stop Dose Admin Acetaminophen 650 mg 12/09/17 03:57 Tylenol - PO Q6H PRN FEVER Dextrose/Sodium Chloride 1,000 mls @ 65 mls/hr 12/11/17 12:36 12/12/17 09:23 D5-Ns - IV 65 mls/hr ASDIR JOSE ENRIQUE Administration Ceftriaxone Sodium 1 gm/ 50 mls @ 200 mls/hr 12/11/17 15:00 12/12/17 09:20 Dextrose IVPB 200 mls/hr DAILY JOSE ENRIQUE Administration Protocol Metronidazole 500 mg in 100 mls @ 100 mls/hr 12/11/17 18:00 12/12/17 09:22 Flagyl 500mg Premixed Ivpb - IVPB 100 mls/hr Q8H-IV JOSE ENRIQUE Administration Ondansetron HCl 4 mg 12/09/17 03:57 Zofran Injection IVPUSH Q8H PRN NAUSEA Impression 1. SETH 2. cholecystitis 3. HTN 4. sepsis 5. fever 6. renal cysts 7. hypokalemia 8. atrophic left kidney Plan - cont to monitor renal function - can change fluids to 1/2 ns - surgery/GI follow up - cont abx - likely seth from sepsis and pre-renal disease - will follow
[2017-12-12] MEDS: SODIUM CHLORIDE 0.45% 1,000 ML IV SCH (14:23)
--- NOTE | 2017-12-12 15:27 | PN ---
Progress Note, Physician History of Present Illness: Pt without new complaints. Still with discomfort in RUQ. No shortness of breath/ cough. Remains alert, afebrile. - Current Medication List Current Medications: Active Medications Acetaminophen (Tylenol -) 650 mg PO Q6H PRN PRN Reason: FEVER Ceftriaxone Sodium 1 gm/ (Dextrose) 50 mls @ 200 mls/hr IVPB DAILY JOSE ENRIQUE; Protocol Last Admin: 12/12/17 09:20 Dose: 200 mls/hr Metronidazole (Flagyl 500mg Premixed Ivpb -) 500 mg in 100 mls @ 100 mls/hr IVPB Q8H-IV JOSE ENRIQUE Last Admin: 12/12/17 09:22 Dose: 100 mls/hr Sodium Chloride (1/2 Normal Saline) 1,000 mls @ 75 mls/hr IV ASDIR JOSE ENRIQUE Last Admin: 12/12/17 14:23 Dose: 75 mls/hr Ondansetron HCl (Zofran Injection) 4 mg IVPUSH Q8H PRN PRN Reason: NAUSEA - Objective Vital Signs: Vital Signs Temperature 98.7 F 12/12/17 14:02 Pulse Rate 98 H 12/12/17 14:02 Respiratory Rate 18 12/12/17 10:00 Blood Pressure 127/62 12/12/17 14:02 O2 Sat by Pulse Oximetry (%) 98 12/12/17 09:00 Constitutional: Yes: No Distress, Calm Cardiovascular: Yes: Regular Rate and Rhythm Respiratory: Yes: CTA Bilaterally Gastrointestinal: Yes: Normal Bowel Sounds, Soft, Tenderness (mild RUQ), Other ( RUQ biliary drain) Genitourinary: Yes: WNL Integumentary: Yes: WNL Neurological: Yes: Alert, Oriented Labs: CBC, BMP 12/12/17 07:23 12/12/17 07:23 INR, PTT INR 1.19 (0.83-1.09) H 12/08/17 16:00 Problem List - Problems (1) SETH (acute kidney injury) Code(s): N17.9 - ACUTE KIDNEY FAILURE, UNSPECIFIED (2) Abdominal pain Code(s): R10.9 - UNSPECIFIED ABDOMINAL PAIN Qualifiers: Abdominal location: unspecified location Qualified Code(s): R10.9 - Unspecified abdominal pain (3) Cholecystitis Code(s): K81.9 - CHOLECYSTITIS, UNSPECIFIED (4) Leukocytosis Code(s): D72.829 - ELEVATED WHITE BLOOD CELL COUNT, UNSPECIFIED Qualifiers: Leukocytosis type: unspecified Qualified Code(s): D72.829 - Elevated white blood cell count, unspecified Assessment/Plan 82 y.o. female with PMH of HTN and HLD presenting with upper abdominal pain, nausea and vomiting x 2 days. Imaging consistent with GB distention, pericholecystic fluid and large calculi as well as possible RLL pulmonary consolidation Sepsis Acute Cholecystitis s/p percutaneous cholecystostomy Leukocytosis - improved Fever - now afebrile SETH- improved -- continue Ceftriaxone/Flagyl -- plan switch to po antibiotics if continues to improve, tolerates oral -- pt afebrile, wbc nearly normal -- f/u labs tomorrow -- continue monitor
[2017-12-12] MEDS: ACETAMINOPHEN 325 MG TABLET (FP) PO PRN (21:32)
--- NOTE | 2017-12-12 21:43 | PN ---
Progress Note, Physician History of Present Illness: Pt has tolerated diet and therefore will advance diet - Current Medication List Current Medications: Active Medications Acetaminophen (Tylenol -) 650 mg PO Q6H PRN PRN Reason: FEVER Last Admin: 12/12/17 21:32 Dose: 650 mg Ceftriaxone Sodium 1 gm/ (Dextrose) 50 mls @ 200 mls/hr IVPB DAILY JOSE ENRIQUE; Protocol Last Admin: 12/12/17 09:20 Dose: 200 mls/hr Metronidazole (Flagyl 500mg Premixed Ivpb -) 500 mg in 100 mls @ 100 mls/hr IVPB Q8H-IV JOSE ENRIQUE Last Admin: 12/12/17 17:24 Dose: 100 mls/hr Sodium Chloride (1/2 Normal Saline) 1,000 mls @ 75 mls/hr IV ASDIR JOSE ENRIQUE Last Admin: 12/12/17 14:23 Dose: 75 mls/hr Ondansetron HCl (Zofran Injection) 4 mg IVPUSH Q8H PRN PRN Reason: NAUSEA - Objective Vital Signs: Vital Signs Temperature 98.7 F 12/12/17 14:02 Pulse Rate 98 H 12/12/17 14:02 Respiratory Rate 18 12/12/17 10:00 Blood Pressure 127/62 12/12/17 14:02 O2 Sat by Pulse Oximetry (%) 98 12/12/17 09:00 Neck: Yes: WNL, Supple Cardiovascular: Yes: WNL, Regular Rate and Rhythm Respiratory: Yes: WNL, Regular, CTA Bilaterally Gastrointestinal: Yes: WNL, Normal Bowel Sounds, Other ((+) ELIGIO drainage tube in RUQ) Labs: CBC, BMP 12/12/17 07:23 12/12/17 07:23 INR, PTT INR 1.19 (0.83-1.09) H 12/08/17 16:00 Problem List - Problems (1) Cholecystitis Assessment/Plan: S/P cholecystostomy drainage tube placement Advance diet Cont IV ceftriaxone/flagyl Change to po antibxs as per ID Pt to see surgeon(Dr Bryan Munroe) in 4-6 weeks for elective cholecystectomy Code(s): K81.9 - CHOLECYSTITIS, UNSPECIFIED (2) SETH (acute kidney injury) Assessment/Plan: Improved Code(s): N17.9 - ACUTE KIDNEY FAILURE, UNSPECIFIED
[2017-12-12] MEDS ORDERED: MAG HYDROX/AL HYDROX/SIMETH 30 ML UNIT-DOSE CUP PO ONE (23:00)
[2017-12-13] MEDS: ACETAMINOPHEN 325 MG TABLET (FP) PO PRN (06:03)
[2017-12-13] MEDS: SODIUM CHLORIDE 0.45% 1,000 ML IV SCH ×2 (06:04→14:35)
[2017-12-13 07:21] LABS: BASO % 0.4 % (0-2.0); EOS % 0.6 % (0-4.5); HEMATOCRIT 39.3 % (32.4-45.2); HEMOGLOBIN 13.3 GM/dL (10.7-15.3); LYMPH % 7.9 % (8-40); MCH 30.6 pg (25.7-33.7); MCHC 33.8 g/dl (32.0-36.0); MEAN CELL VOLUME 90.3 fl (80-96); MEAN PLT VOLUME 7.4 fl (7.5-11.1); NEUT % 82.1 % (42.8-82.8); PLATELET COUNT 299 K/MM3 (134-434); RBC 4.35 M/mm3 (3.60-5.2); RDW 15.4 % (11.6-15.6); WHITE BLOOD COUNT 10.2 K/mm3 (4.0-10.0)
[2017-12-13 07:54] LABS: CHLORIDE 107 mmol/L (98-107); POTASSIUM 3.6 mmol/L (3.5-5.1); SODIUM 142 mmol/L (136-145)
[2017-12-13 08:03] LABS: ALBUMIN 2.3 g/dl (3.4-5.0); ALK PHOS 135 U/L (45-117); ANION GAP 10 MMOL/L (8-16); BILIRUBIN,TOTAL 0.6 mg/dL (0.2-1.0); BLOOD UREA NITROGEN 28 mg/dL (7-18); CALCIUM 8.6 mg/dL (8.5-10.1); CO2 25 mmol/L (21-32); CREATININE 1.3 mg/dL (0.55-1.3); GLUCOSE,RANDOM 102 mg/dL (74-106); MAGNESIUM 2.2 mg/dL (1.8-2.4); SGOT/AST 38 U/L (15-37); SGPT/ALT 34 U/L (13-61); TOT PROT 5.7 g/dl (6.4-8.2)
[2017-12-13] MEDS ORDERED: DEXTROSE 5%-WATER - 50 ML IVPB ONE (09:12)
[2017-12-13] MEDS ORDERED: cefTRIAXone SODIUM 1 GM VIAL ONE (09:12)
--- NOTE | 2017-12-13 09:13 | PN ---
Physical Exam: SUBJECTIVE: Patient seen and examined at bedside. Says the tube "bothers" her but no pain. Denies fever, sweats, chills. Had earlier episode of acid stomach but Protonix helped. OBJECTIVE: Vital Signs Period Temp Pulse Resp BP Sys/Marinelli Pulse Ox Last 24 Hr 98.0 F-98.7 F 84-98 18-20 123-133/62-84 97 GENERAL: The patient is awake, alert, and fully oriented, in no acute distress. LUNGS: CTA HEART: RRR, S1, S2 ABDOMEN: Soft, nontender, nondistended; RUQ drain, dark green fluid EXTREMITIES: 2+ pulses, warm, well-perfused, no edema. NEUROLOGICAL: Cranial nerves II through XII grossly intact. Normal speech, Laboratory Results - last 24 hr 12/12/17 12/13/17 12/13/17 07:23 06:30 06:30 WBC 10.2 H RBC 4.35 Hgb 13.3 Hct 39.3 MCV 90.3 MCH 30.6 MCHC 33.8 RDW 15.4 Plt Count 299 MPV 7.4 L Absolute Neuts (auto) 8.4 H Neutrophils % 82.1 Neutrophils % (Manual) 74.3 Band Neutrophils % 0.0 Lymphocytes % 7.9 L D Lymphocytes % (Manual) 7.9 L D Monocytes % 9.0 Monocytes % (Manual) 6 Eosinophils % 0.6 Eosinophils % (Manual) 2.0 D Basophils % 0.4 Basophils % (Manual) 0.0 Myelocytes % (Man) 5 H D Promyelocytes % (Man) 0 Blast Cells % (Manual) 0 Nucleated RBC % 0 Metamyelocytes 2 D Hypochromia 0 Toxic Granulation 0 Dohle Bodies 0 Platelet Estimate Normal Polychromasia 0 Poikilocytosis 0 Basophilic Stippling 0 Anisocytosis 0 Microcytosis 0 Macrocytosis 0 Spherocytes 0 Sickle Cells 0 Target Cells 0 Tear Drop Cells 0 Ovalocytes 0 Stomatocytes 0 Helmet Cells 0 Iglesias-Raub Bodies 0 [place] Rings 0 [place] Cells 0 Acanthocytes (Spur) 0 Rouleaux 0 Fragmented RBCs 0 Schistocytes 0 Sodium 142 Potassium 3.6 Chloride 107 Carbon Dioxide 25 Anion Gap 10 BUN 28 H Creatinine 1.3 Creat Clearance w eGFR 39.41 Random Glucose 102 Calcium 8.6 Magnesium 2.2 Total Bilirubin 0.6 AST 38 H ALT 34 Alkaline Phosphatase 135 H Total Protein 5.7 L Albumin 2.3 L Active Medications Generic Name Dose Route Start Last Admin Trade Name Freq PRN Reason Stop Dose Admin Acetaminophen 650 mg 12/09/17 03:57 12/13/17 06:03 Tylenol - PO 650 mg Q6H PRN Administration FEVER Ceftriaxone Sodium 1 gm/ 50 mls @ 200 mls/hr 12/11/17 15:00 12/12/17 09:20 Dextrose IVPB 200 mls/hr DAILY JOSE ENRIQUE Administration Protocol Metronidazole 500 mg in 100 mls @ 100 mls/hr 12/11/17 18:00 12/13/17 01:14 Flagyl 500mg Premixed Ivpb - IVPB 100 mls/hr Q8H-IV JOSE ENRIQUE Administration Sodium Chloride 1,000 mls @ 75 mls/hr 12/12/17 14:00 12/13/17 06:04 1/2 Normal Saline IV 75 mls/hr ASDIR JOSE ENRIQUE Administration Ondansetron HCl 4 mg 12/09/17 03:57 Zofran Injection IVPUSH Q8H PRN NAUSEA ASSESSMENT/PLAN 82 year-old female with a PMH significant for HTN and HLD, admitted for sepsis secondary to cholecystitis and SETH. 82 y.o. female with PMH of HTN and HLD presenting with upper abdominal pain, nausea and vomiting x 2 days. Imaging consistent with GB distention, pericholecystic fluid and large calculi as well as possible RLL pulmonary consolidation Sepsis secondary to acute cholecystitis s/p percutaneous cholecystostomy --afebrile, leukocytosis resolved, hemodynamically stable --drain putting out dark green fluid --continue ceftriaxone, flagyl --ID following SETH --Cr 2.3 on admission, 1.3 today --continue 1/2 NS per renal Hypertension --BP stable --home losartan and HCTZ on hold Hyperlipidemia --home statin on hold DVT prophylaxis: start subq heparin Physical therapy Visit type - Emergency Visit Emergency Visit: Yes ED Registration Date: 12/08/17 Care time: The patient presented to the Emergency Department on the above date and was hospitalized for further evaluation of their emergent condition. - New Patient This patient is new to me today: Yes Date on this admission: 12/13/17 - Critical Care Critical Care patient: No
[2017-12-13] MEDS: CEFTRIAXONE 1 GM in DEXTROSE 5%-WATER - 50 ML IVPB SCH (09:22)
[2017-12-13 10:55] LABS: ANISOCYTOSIS 0; MACROCYTOSIS 0; PLATELET ESTIMATE NORMAL
[2017-12-13] MEDS: PANTOPRAZOLE 40 MG TABLET (FP) PO SCH (10:58)
--- NOTE | 2017-12-13 12:06 | PN ---
Progress Note, Physician History of Present Illness: Pt seen and examined at bedside. She is awake and alert. She is tolerating diet. - Current Medication List Current Medications: Active Medications Acetaminophen (Tylenol -) 650 mg PO Q6H PRN PRN Reason: FEVER Last Admin: 12/13/17 06:03 Dose: 650 mg Ceftriaxone Sodium 1 gm/ (Dextrose) 50 mls @ 200 mls/hr IVPB DAILY JOSE ENRIQUE; Protocol Last Admin: 12/13/17 09:22 Dose: 200 mls/hr Metronidazole (Flagyl 500mg Premixed Ivpb -) 500 mg in 100 mls @ 100 mls/hr IVPB Q8H-IV JOSE ENRIQUE Last Admin: 12/13/17 09:22 Dose: 100 mls/hr Sodium Chloride (1/2 Normal Saline) 1,000 mls @ 75 mls/hr IV ASDIR JOSE ENRIQUE Last Admin: 12/13/17 06:04 Dose: 75 mls/hr Ondansetron HCl (Zofran Injection) 4 mg IVPUSH Q8H PRN PRN Reason: NAUSEA Pantoprazole Sodium (Protonix -) 40 mg PO DAILY JOSE ENRIQUE Last Admin: 12/13/17 10:58 Dose: 40 mg - Objective Vital Signs: Vital Signs Temperature 98.6 F 12/13/17 08:49 Pulse Rate 84 12/13/17 08:49 Respiratory Rate 20 12/13/17 08:49 Blood Pressure 123/70 12/13/17 08:49 O2 Sat by Pulse Oximetry (%) 96 12/13/17 09:00 Constitutional: Yes: Calm Eyes: Yes: Conjunctiva Clear HENT: Yes: Atraumatic Neck: Yes: Supple Cardiovascular: Yes: S1, S2 Respiratory: Yes: CTA Bilaterally Gastrointestinal: Yes: Other (biliary drain) Genitourinary: Yes: WNL Musculoskeletal: Yes: WNL Edema: LLE: Trace, RLE: Trace Neurological: Yes: Oriented Psychiatric: Yes: Oriented Labs: CBC, BMP 12/13/17 06:30 12/13/17 06:30 INR, PTT INR 1.19 (0.83-1.09) H 12/08/17 16:00 Problem List - Problems (1) SETH (acute kidney injury) Code(s): N17.9 - ACUTE KIDNEY FAILURE, UNSPECIFIED (2) Abdominal pain Code(s): R10.9 - UNSPECIFIED ABDOMINAL PAIN Qualifiers: Abdominal location: unspecified location Qualified Code(s): R10.9 - Unspecified abdominal pain (3) Cholecystitis Code(s): K81.9 - CHOLECYSTITIS, UNSPECIFIED Assessment/Plan Current Medications Generic Name Dose Route Start Last Admin Trade Name Freq PRN Reason Stop Dose Admin Acetaminophen 650 mg 12/09/17 03:57 12/13/17 06:03 Tylenol - PO 650 mg Q6H PRN Administration FEVER Ceftriaxone Sodium 1 gm/ 50 mls @ 200 mls/hr 12/11/17 15:00 12/13/17 09:22 Dextrose IVPB 200 mls/hr DAILY JOSE ENRIQUE Administration Protocol Metronidazole 500 mg in 100 mls @ 100 mls/hr 12/11/17 18:00 12/13/17 09:22 Flagyl 500mg Premixed Ivpb - IVPB 100 mls/hr Q8H-IV JOSE ENRIQUE Administration Sodium Chloride 1,000 mls @ 75 mls/hr 12/12/17 14:00 12/13/17 06:04 1/2 Normal Saline IV 75 mls/hr ASDIR JOSE ENRIQUE Administration Ondansetron HCl 4 mg 12/09/17 03:57 Zofran Injection IVPUSH Q8H PRN NAUSEA Pantoprazole Sodium 40 mg 12/13/17 10:45 12/13/17 10:58 Protonix - PO 40 mg DAILY JOSE ENRIQUE Administration Impression 1. SETH 2. cholecystitis 3. HTN 4. sepsis 5. fever 6. renal cysts 7. hypokalemia 8. atrophic left kidney Plan - decrease fluids further - pt tolerating diet - replace potassium - repeat labs in am - renal function is improving - cont abx - likely seth from sepsis and pre-renal disease - will follow
[2017-12-13] MEDS ORDERED: POTASSIUM CHLORIDE ORAL LIQUID 20 MEQ/15 ML PO ONE (13:15)
[2017-12-13] MEDS: SUCRALFATE 1 GM/10 ML UNIT DOSE CUPS PO SCH ×2 (14:38→21:47)
--- NOTE | 2017-12-13 14:44 | PN ---
Progress Note, Physician History of Present Illness: Pt remains alert, afebrile. Ate lunch today. Has had a BM. No specific complaints. - Current Medication List Current Medications: Active Medications Acetaminophen (Tylenol -) 650 mg PO Q6H PRN PRN Reason: FEVER Last Admin: 12/13/17 06:03 Dose: 650 mg Ceftriaxone Sodium 1 gm/ (Dextrose) 50 mls @ 200 mls/hr IVPB DAILY [facility]; Protocol Last Admin: 12/13/17 09:22 Dose: 200 mls/hr Metronidazole (Flagyl 500mg Premixed Ivpb -) 500 mg in 100 mls @ 100 mls/hr IVPB Q8H-IV JOSE ENRIQUE Last Admin: 12/13/17 09:22 Dose: 100 mls/hr Sodium Chloride (1/2 Normal Saline) 1,000 mls @ 35 mls/hr IV ASDIR JOSE ENRIQUE Last Admin: 12/13/17 14:35 Dose: Not Given Ondansetron HCl (Zofran Injection) 4 mg IVPUSH Q8H PRN PRN Reason: NAUSEA Pantoprazole Sodium (Protonix -) 40 mg PO DAILY [facility] Last Admin: 12/13/17 10:58 Dose: 40 mg Sucralfate (Carafate Oral Suspension -) 1 gm PO BID JOSE ENRIQUE Last Admin: 12/13/17 14:38 Dose: 1 gm - Objective Vital Signs: Vital Signs Temperature 98.6 F 12/13/17 08:49 Pulse Rate 84 12/13/17 08:49 Respiratory Rate 20 12/13/17 08:49 Blood Pressure 123/70 12/13/17 08:49 O2 Sat by Pulse Oximetry (%) 96 12/13/17 09:00 Constitutional: Yes: No Distress, Calm Cardiovascular: Yes: Regular Rate and Rhythm Respiratory: Yes: Regular Gastrointestinal: Yes: Normal Bowel Sounds, Soft, Other (RUQ drain) Genitourinary: Yes: WNL Extremities: Yes: WNL Integumentary: Yes: WNL Neurological: Yes: Alert, Oriented Labs: CBC, BMP 12/13/17 06:30 12/13/17 06:30 INR, PTT INR 1.19 (0.83-1.09) H 12/08/17 16:00 Problem List - Problems (1) SETH (acute kidney injury) Code(s): N17.9 - ACUTE KIDNEY FAILURE, UNSPECIFIED (2) Abdominal pain Code(s): R10.9 - UNSPECIFIED ABDOMINAL PAIN Qualifiers: Abdominal location: unspecified location Qualified Code(s): R10.9 - Unspecified abdominal pain (3) Cholecystitis Code(s): K81.9 - CHOLECYSTITIS, UNSPECIFIED (4) Leukocytosis Code(s): D72.829 - ELEVATED WHITE BLOOD CELL COUNT, UNSPECIFIED Qualifiers: Leukocytosis type: unspecified Qualified Code(s): D72.829 - Elevated white blood cell count, unspecified Assessment/Plan 82 y.o. female with PMH of HTN and HLD presenting with upper abdominal pain, nausea and vomiting x 2 days. Imaging consistent with GB distention, pericholecystic fluid and large calculi as well as possible RLL pulmonary consolidation Sepsis Acute Cholecystitis s/p percutaneous cholecystostomy Leukocytosis - improved Fever - now afebrile SETH- improved -- wbc now normal, pt afebrile -- if d/c home suggest Cefpodoxime 200 mg po BID and Flagyl 500 mg po TID x 10 days -- f/u as outpt to assess for drain removal -- continue monitor
[2017-12-14] MEDS ORDERED: DEXTROSE 5%-WATER - 50 ML IVPB ONE (08:47)
[2017-12-14] MEDS ORDERED: cefTRIAXone SODIUM 1 GM VIAL ONE (08:47)
[2017-12-14 08:48] LABS: ANION GAP 16 MMOL/L (8-16); BLOOD UREA NITROGEN 23 mg/dL (7-18); CALCIUM 8.3 mg/dL (8.5-10.1); CHLORIDE 113 mmol/L (98-107); CO2 16 mmol/L (21-32); CREATININE 0.9 mg/dL (0.55-1.3); GLUCOSE,RANDOM 82 mg/dL (74-106); POTASSIUM 4.2 mmol/L (3.5-5.1); SODIUM 145 mmol/L (136-145)
[2017-12-14] MEDS: CEFTRIAXONE 1 GM in DEXTROSE 5%-WATER - 50 ML IVPB SCH (09:31)
[2017-12-14] MEDS: SUCRALFATE 1 GM/10 ML UNIT DOSE CUPS PO SCH ×2 (09:31→21:15)
[2017-12-14] MEDS: PANTOPRAZOLE 40 MG TABLET (FP) PO SCH (09:31)
[2017-12-14] MEDS: ACETAMINOPHEN 325 MG TABLET (FP) PO PRN (09:31)
[2017-12-14] MEDS: SODIUM CHLORIDE 0.45% 1,000 ML IV SCH (09:36)
--- NOTE | 2017-12-14 12:53 | PN ---
Progress Note, Physician History of Present Illness: Pt is alert, afebrile, without abdominal pain. Tolerating solids, had 1 BM today. - Current Medication List Current Medications: Active Medications Acetaminophen (Tylenol -) 650 mg PO Q6H PRN PRN Reason: FEVER Last Admin: 12/14/17 09:31 Dose: 650 mg Sodium Chloride (1/2 Normal Saline) 1,000 mls @ 35 mls/hr IV ASDIR [facility] Last Admin: 12/14/17 09:36 Dose: 35 mls/hr Ondansetron HCl (Zofran Injection) 4 mg IVPUSH Q8H PRN PRN Reason: NAUSEA Pantoprazole Sodium (Protonix -) 40 mg PO DAILY [facility] Last Admin: 12/14/17 09:31 Dose: 40 mg Sucralfate (Carafate Oral Suspension -) 1 gm PO BID [facility] Last Admin: 12/14/17 09:31 Dose: 1 gm - Objective Vital Signs: Vital Signs Temperature 98.9 F 12/14/17 10:00 Pulse Rate 98 H 12/14/17 10:00 Respiratory Rate 18 12/14/17 10:00 Blood Pressure 141/74 12/14/17 10:00 O2 Sat by Pulse Oximetry (%) 95 12/14/17 09:00 Constitutional: Yes: No Distress, Calm Cardiovascular: Yes: Regular Rate and Rhythm Respiratory: Yes: CTA Bilaterally Gastrointestinal: Yes: Normal Bowel Sounds, Soft, Other (RUQ drain) Genitourinary: Yes: WNL Musculoskeletal: Yes: WNL Extremities: Yes: WNL Integumentary: Yes: WNL Neurological: Yes: Alert, Oriented Labs: CBC, BMP 12/13/17 06:30 12/14/17 07:00 INR, PTT INR 1.19 (0.83-1.09) H 12/08/17 16:00 Microbiology 12/08/17 18:30 Blood - Peripheral Venous Blood Culture - Final NO GROWTH AFTER 5 DAYS INCUBATION 12/08/17 18:30 Blood - Peripheral Venous Blood Culture - Final NO GROWTH AFTER 5 DAYS INCUBATION 12/09/17 11:00 Body Fluid - Other Gram Stain - Final 12/09/17 11:00 Body Fluid - Other Body Fluid Culture - Final Escherichia Coli 12/09/17 11:00 Body Fluid - Other Anaerobic Culture - Final 12/09/17 20:45 Urine - Urine Clean Catch Urine Culture - Final NO GROWTH OBTAINED Problem List - Problems (1) SETH (acute kidney injury) Code(s): N17.9 - ACUTE KIDNEY FAILURE, UNSPECIFIED (2) Abdominal pain Code(s): R10.9 - UNSPECIFIED ABDOMINAL PAIN Qualifiers: Abdominal location: unspecified location Qualified Code(s): R10.9 - Unspecified abdominal pain (3) Cholecystitis Code(s): K81.9 - CHOLECYSTITIS, UNSPECIFIED (4) Leukocytosis Code(s): D72.829 - ELEVATED WHITE BLOOD CELL COUNT, UNSPECIFIED Qualifiers: Leukocytosis type: unspecified Qualified Code(s): D72.829 - Elevated white blood cell count, unspecified Assessment/Plan 82 y.o. female with PMH of HTN and HLD presenting with upper abdominal pain, nausea and vomiting x 2 days. Imaging consistent with GB distention, pericholecystic fluid and large calculi as well as possible RLL pulmonary consolidation Sepsis Acute Cholecystitis s/p percutaneous cholecystostomy Leukocytosis - improved Fever - now afebrile SETH- improved -- wbc now normal, pt afebrile, appears clinically stable -- d/c IV antibiotics and switch to Cefpodoxime 200 mg po BID and Flagyl 500 mg po TID x 9 days -- f/u as outpt to assess for drain removal -- continue monitor
--- NOTE | 2017-12-14 15:01 | PN ---
Progress Note, Physician History of Present Illness: Pt seen and examined at bedside. She is awake and alert. She denies shortness of breath. - Current Medication List Current Medications: Active Medications Acetaminophen (Tylenol -) 650 mg PO Q6H PRN PRN Reason: FEVER Last Admin: 12/14/17 09:31 Dose: 650 mg Cefpodoxime Proxetil (Vantin -) 200 mg PO BID [facility] Sodium Chloride (1/2 Normal Saline) 1,000 mls @ 35 mls/hr IV ASDIR [facility] Last Admin: 12/14/17 09:36 Dose: 35 mls/hr Metronidazole (Flagyl -) 500 mg PO TID [facility] Ondansetron HCl (Zofran Injection) 4 mg IVPUSH Q8H PRN PRN Reason: NAUSEA Pantoprazole Sodium (Protonix -) 40 mg PO DAILY [facility] Last Admin: 12/14/17 09:31 Dose: 40 mg Sucralfate (Carafate Oral Suspension -) 1 gm PO BID [facility] Last Admin: 12/14/17 09:31 Dose: 1 gm - Objective Vital Signs: Vital Signs Temperature 97.7 F 12/14/17 13:41 Pulse Rate 94 H 12/14/17 13:41 Respiratory Rate 18 12/14/17 10:00 Blood Pressure 129/73 12/14/17 13:41 O2 Sat by Pulse Oximetry (%) 95 12/14/17 09:00 Constitutional: Yes: Calm Eyes: Yes: Conjunctiva Clear HENT: Yes: Atraumatic Neck: Yes: Supple Cardiovascular: Yes: S1, S2 Respiratory: Yes: CTA Bilaterally Gastrointestinal: Yes: Normal Bowel Sounds, Soft, Other (biliary drain) Genitourinary: Yes: WNL Musculoskeletal: Yes: WNL Edema: No Neurological: Yes: Oriented Psychiatric: Yes: Oriented Labs: CBC, BMP 12/13/17 06:30 12/14/17 07:00 INR, PTT INR 1.19 (0.83-1.09) H 12/08/17 16:00 Problem List - Problems (1) FLORENCIO (acute kidney injury) Code(s): N17.9 - ACUTE KIDNEY FAILURE, UNSPECIFIED (2) Abdominal pain Code(s): R10.9 - UNSPECIFIED ABDOMINAL PAIN Qualifiers: Abdominal location: unspecified location Qualified Code(s): R10.9 - Unspecified abdominal pain (3) Cholecystitis Code(s): K81.9 - CHOLECYSTITIS, UNSPECIFIED Assessment/Plan Current Medications Generic Name Dose Route Start Last Admin Trade Name Radu PRN Reason Stop Dose Admin Acetaminophen 650 mg 12/09/17 03:57 12/14/17 09:31 Tylenol - PO 650 mg Q6H PRN Administration FEVER Cefpodoxime Proxetil 200 mg 12/14/17 22:00 Vantin - PO BID JOSE ENRIQUE Sodium Chloride 1,000 mls @ 35 mls/hr 12/13/17 12:06 12/14/17 09:36 1/2 Normal Saline IV 35 mls/hr ASDIR JOSE ENRIQUE Administration Metronidazole 500 mg 12/14/17 14:00 Flagyl - PO TID JOSE ENRIQUE Ondansetron HCl 4 mg 12/09/17 03:57 Zofran Injection IVPUSH Q8H PRN NAUSEA Pantoprazole Sodium 40 mg 12/13/17 10:45 12/14/17 09:31 Protonix - PO 40 mg DAILY JOSE ENRIQUE Administration Sucralfate 1 gm 12/13/17 13:30 12/14/17 09:31 Carafate Oral Suspension - PO 1 gm BID JOSE ENRIQUE Administration Impression 1. FLORENCIO 2. cholecystitis 3. HTN 4. sepsis 5. fever 6. renal cysts 7. hypokalemia 8. atrophic left kidney Plan - can d/c fluids - repeat labs in am - renal function is improved - cont abx - likely florencio from sepsis and pre-renal disease - will follow
[2017-12-14] MEDS: metroNIDAZOLE 250 MG TABLET PO SCH ×2 (15:06→21:15)
[2017-12-14] MEDS: CEFPODOXIME PROXETIL 200 MG TABLET [NF] PO SCH (21:16)
--- NOTE | 2017-12-14 23:20 | PN ---
Progress Note, Physician - Current Medication List Current Medications: Active Medications Acetaminophen (Tylenol -) 650 mg PO Q6H PRN PRN Reason: FEVER Last Admin: 12/14/17 09:31 Dose: 650 mg Cefpodoxime Proxetil (Vantin -) 200 mg PO BID [facility] Last Admin: 12/14/17 21:16 Dose: 200 mg Metronidazole (Flagyl -) 500 mg PO TID [facility] Last Admin: 12/14/17 21:15 Dose: 500 mg Ondansetron HCl (Zofran Injection) 4 mg IVPUSH Q8H PRN PRN Reason: NAUSEA Pantoprazole Sodium (Protonix -) 40 mg PO DAILY [facility] Last Admin: 12/14/17 09:31 Dose: 40 mg Sucralfate (Carafate Oral Suspension -) 1 gm PO BID [facility] Last Admin: 12/14/17 21:15 Dose: 1 gm - Objective Vital Signs: Vital Signs Temperature 98.2 F 12/14/17 21:27 Pulse Rate 99 H 12/14/17 21:27 Respiratory Rate 18 12/14/17 21:27 Blood Pressure 136/73 12/14/17 21:27 O2 Sat by Pulse Oximetry (%) 95 12/14/17 09:00 Labs: CBC, BMP 12/13/17 06:30 12/14/17 07:00 INR, PTT INR 1.19 (0.83-1.09) H 12/08/17 16:00 Problem List - Problems (1) Cholecystitis Code(s): K81.9 - CHOLECYSTITIS, UNSPECIFIED (2) SETH (acute kidney injury) Code(s): N17.9 - ACUTE KIDNEY FAILURE, UNSPECIFIED
[2017-12-15] MEDS: metroNIDAZOLE 250 MG TABLET PO SCH ×2 (06:10→13:42)
[2017-12-15 08:30] LABS: ANION GAP 8 MMOL/L (8-16); BLOOD UREA NITROGEN 22 mg/dL (7-18); CALCIUM 8.3 mg/dL (8.5-10.1); CHLORIDE 111 mmol/L (98-107); CO2 22 mmol/L (21-32); GLUCOSE,RANDOM 101 mg/dL (74-106); POTASSIUM 3.6 mmol/L (3.5-5.1); SODIUM 141 mmol/L (136-145)
[2017-12-15 08:54] VITALS: TEMP 97.9
[2017-12-15] MEDS: SUCRALFATE 1 GM/10 ML UNIT DOSE CUPS PO SCH (09:17)
[2017-12-15] MEDS: PANTOPRAZOLE 40 MG TABLET (FP) PO SCH (09:18)
[2017-12-15] MEDS: CEFPODOXIME PROXETIL 200 MG TABLET [NF] PO SCH (09:18)
--- NOTE | 2017-12-15 11:47 | PN ---
Progress Note, Physician History of Present Illness: pt is alert, afebrile, without abdominal pain and tolerating solid food. - Current Medication List Current Medications: Active Medications Acetaminophen (Tylenol -) 650 mg PO Q6H PRN PRN Reason: FEVER Last Admin: 12/14/17 09:31 Dose: 650 mg Cefpodoxime Proxetil (Vantin -) 200 mg PO BID [facility] Last Admin: 12/15/17 09:18 Dose: 200 mg Metronidazole (Flagyl -) 500 mg PO TID [facility] Last Admin: 12/15/17 06:10 Dose: 500 mg Ondansetron HCl (Zofran Injection) 4 mg IVPUSH Q8H PRN PRN Reason: NAUSEA Pantoprazole Sodium (Protonix -) 40 mg PO DAILY [facility] Last Admin: 12/15/17 09:18 Dose: 40 mg Sucralfate (Carafate Oral Suspension -) 1 gm PO BID [facility] Last Admin: 12/15/17 09:17 Dose: 1 gm - Objective Vital Signs: Vital Signs Temperature 97.9 F 12/15/17 08:50 Pulse Rate 94 H 12/15/17 08:50 Respiratory Rate 18 12/15/17 08:50 Blood Pressure 135/75 12/15/17 08:50 O2 Sat by Pulse Oximetry (%) 94 L 12/15/17 08:50 Constitutional: Yes: No Distress, Calm Cardiovascular: Yes: Regular Rate and Rhythm Respiratory: Yes: CTA Bilaterally Gastrointestinal: Yes: Normal Bowel Sounds, Soft, Other (+Biliary drain) Genitourinary: Yes: WNL Extremities: Yes: WNL Neurological: Yes: Alert, Oriented Labs: CBC, BMP 12/13/17 06:30 12/15/17 07:24 INR, PTT INR 1.19 (0.83-1.09) H 12/08/17 16:00 Microbiology 12/08/17 18:30 Blood - Peripheral Venous Blood Culture - Final NO GROWTH AFTER 5 DAYS INCUBATION 12/08/17 18:30 Blood - Peripheral Venous Blood Culture - Final NO GROWTH AFTER 5 DAYS INCUBATION 12/09/17 11:00 Body Fluid - Other Gram Stain - Final 12/09/17 11:00 Body Fluid - Other Body Fluid Culture - Final Escherichia Coli 12/09/17 11:00 Body Fluid - Other Anaerobic Culture - Final 12/09/17 20:45 Urine - Urine Clean Catch Urine Culture - Final NO GROWTH OBTAINED Problem List - Problems (1) SETH (acute kidney injury) Code(s): N17.9 - ACUTE KIDNEY FAILURE, UNSPECIFIED (2) Abdominal pain Code(s): R10.9 - UNSPECIFIED ABDOMINAL PAIN Qualifiers: Abdominal location: unspecified location Qualified Code(s): R10.9 - Unspecified abdominal pain (3) Cholecystitis Code(s): K81.9 - CHOLECYSTITIS, UNSPECIFIED (4) Leukocytosis Code(s): D72.829 - ELEVATED WHITE BLOOD CELL COUNT, UNSPECIFIED Qualifiers: Leukocytosis type: unspecified Qualified Code(s): D72.829 - Elevated white blood cell count, unspecified Assessment/Plan 82 y.o. female with PMH of HTN and HLD presenting with upper abdominal pain, nausea and vomiting x 2 days. Imaging consistent with GB distention, pericholecystic fluid and large calculi as well as possible RLL pulmonary consolidation Sepsis Acute Cholecystitis s/p percutaneous cholecystostomy Leukocytosis - improved Fever - now afebrile SETH- improved -- wbc now normal, pt afebrile, appears clinically stable -- Cefpodoxime 200 mg po BID and Flagyl 500 mg po TID x 8 more days -- f/u as outpt planned to assess for drain removal
[2017-12-15 13:27] VITALS: BP 114/70; PULSE 89
--- NOTE | 2017-12-15 14:17 | PN ---
Progress Note, Physician History of Present Illness: Pt seen and examined at bedside. She is awake and alert. She denies shortness of breath. She is tolerating diet. - Current Medication List Current Medications: Active Medications Acetaminophen (Tylenol -) 650 mg PO Q6H PRN PRN Reason: FEVER Last Admin: 12/14/17 09:31 Dose: 650 mg Cefpodoxime Proxetil (Vantin -) 200 mg PO BID [facility] Last Admin: 12/15/17 09:18 Dose: 200 mg Metronidazole (Flagyl -) 500 mg PO TID [facility] Last Admin: 12/15/17 13:42 Dose: 500 mg Ondansetron HCl (Zofran Injection) 4 mg IVPUSH Q8H PRN PRN Reason: NAUSEA Pantoprazole Sodium (Protonix -) 40 mg PO DAILY [facility] Last Admin: 12/15/17 09:18 Dose: 40 mg Sucralfate (Carafate Oral Suspension -) 1 gm PO BID [facility] Last Admin: 12/15/17 09:17 Dose: 1 gm - Objective Vital Signs: Vital Signs Temperature 97.9 F 12/15/17 13:26 Pulse Rate 89 12/15/17 13:26 Respiratory Rate 18 12/15/17 08:50 Blood Pressure 114/70 12/15/17 13:26 O2 Sat by Pulse Oximetry (%) 94 L 12/15/17 08:50 Constitutional: Yes: Calm Eyes: Yes: Conjunctiva Clear HENT: Yes: Atraumatic Neck: Yes: Supple Cardiovascular: Yes: S1, S2 Respiratory: Yes: CTA Bilaterally Gastrointestinal: Yes: Soft, Other (biliary drain) Genitourinary: Yes: WNL Musculoskeletal: Yes: WNL Edema: Yes Edema: LLE: Trace, RLE: Trace Neurological: Yes: Oriented Psychiatric: Yes: Oriented Labs: CBC, BMP 12/13/17 06:30 12/15/17 07:24 INR, PTT INR 1.19 (0.83-1.09) H 12/08/17 16:00 Problem List - Problems (1) FLORENCIO (acute kidney injury) Code(s): N17.9 - ACUTE KIDNEY FAILURE, UNSPECIFIED (2) Abdominal pain Code(s): R10.9 - UNSPECIFIED ABDOMINAL PAIN Qualifiers: Abdominal location: unspecified location Qualified Code(s): R10.9 - Unspecified abdominal pain (3) Cholecystitis Code(s): K81.9 - CHOLECYSTITIS, UNSPECIFIED Assessment/Plan Current Medications Generic Name Dose Route Start Last Admin Trade Name Radu PRN Reason Stop Dose Admin Acetaminophen 650 mg 12/09/17 03:57 12/14/17 09:31 Tylenol - PO 650 mg Q6H PRN Administration FEVER Cefpodoxime Proxetil 200 mg 12/14/17 22:00 12/15/17 09:18 Vantin - PO 200 mg BID JOSE ENRIQUE Administration Metronidazole 500 mg 12/14/17 14:00 12/15/17 13:42 Flagyl - PO 500 mg TID JOSE ENRIQUE Administration Ondansetron HCl 4 mg 12/09/17 03:57 Zofran Injection IVPUSH Q8H PRN NAUSEA Pantoprazole Sodium 40 mg 12/13/17 10:45 12/15/17 09:18 Protonix - PO 40 mg DAILY JOSE ENRIQUE Administration Sucralfate 1 gm 12/13/17 13:30 12/15/17 09:17 Carafate Oral Suspension - PO 1 gm BID JOSE ENRIQUE Administration Impression 1. FLORENCIO 2. cholecystitis 3. HTN 4. sepsis 5. fever 6. renal cysts 7. hypokalemia 8. atrophic left kidney Plan - pt stable off of fluids - keep hctz on hold - can restart losartan at 25 mg tomorrow - GI/surg follow up - cont abx - likely florencio from sepsis and pre-renal disease - will follow
[2017-12-16] MEDS ORDERED: LOSARTAN POTASSIUM 25 MG TABLET PO SCH (10:00)
== END 2017-12-15 18:18 | disposition home health service (06) | DRG 871 ==
LOC: JER 15:00 → JERBED 20:20 → J6S 12-09 15:53
PROVIDERS: ADMIT Internal Medicine; ATTEND Internal Medicine
PROC: 0F9430Z Drainage of Gallbladder with Drainage Device, Percutaneous Approach (ICD-10-PCS; principal; 2017-12-09)
DX: A41.9 Sepsis, unspecified organism (principal); J18.9 Pneumonia, unspecified organism; N17.9 Acute kidney failure, unspecified; Q61.3 Polycystic kidney, unspecified; K81.0 Acute cholecystitis; E87.6 Hypokalemia; D72.829 Elevated white blood cell count, unspecified; I10 Essential (primary) hypertension; E78.5 Hyperlipidemia, unspecified
CPT/HCPCS: 36415; 47490; 71045-TC-FY; 74176-TC; 76705-TC; 76775-TC; 76942-TC; 80048; 80053; 81003; 81015; 82436; 82550; 82570; 83605; 83690; 83735; 84133; 84300; 84484; 85025; 85610; 87040; 87070; 87075; 87086; 87186; 87205; 93005; 93010; 97116-GP; 97161-GP; 99285-25; C1729; C1769; J0131

== ENCOUNTER 2018-01-24 06:08 | Day surgery (SDC) | payer OTHER ==
[2018-01-24 06:32] VITALS: BMI 31.4
[2018-01-24] MEDS ORDERED: SUCCINYLCHOLINE CHLORIDE 200 MG/10 ML VIAL ONE (07:20)
[2018-01-24] MEDS ORDERED: MIDAZOLAM HCL 2 MG/2 ML SINGLE DOSE VIAL ONE (07:20)
[2018-01-24] MEDS ORDERED: ROCURONIUM BROMIDE 50 MG/5 ML VIAL ONE (07:20)
[2018-01-24] MEDS ORDERED: fentaNYL CITRATE 250 MCG/5 ML VIAL ONE (07:20)
[2018-01-24] MEDS ORDERED: PROPOFOL 20 ML ONE (07:20)
[2018-01-24] MEDS ORDERED: LIDOCAINE HCL/PF 2% SDV 5ML VIAL ONE (07:20)
[2018-01-24] MEDS ORDERED: DEXAMETHASONE SOD PHOSPHATE 4 MG/1 ML VIAL ONE (07:20)
[2018-01-24] MEDS ORDERED: BUPIVACAINE HCL/PF 0.5% (5MG/ML) 10 ML VIAL ONE (07:41)
--- NOTE | 2018-01-24 08:04 | HP ---
History & Physical Update - History History: No Change - Physical Physical: No Change - Assessment Assessment: No Change - Plan Plan: No Change (Full H&P in chart)
[2018-01-24] MEDS ORDERED: ceFAZolin SODIUM 1 GM VIAL IVPB ONE ×2 (08:40→08:44)
[2018-01-24] MEDS ORDERED: ceFAZolin SODIUM 1 GM VIAL ONE ×2 (08:44→11:30)
[2018-01-24] MEDS ORDERED: BUPIVACAINE HCL/PF (5 MG/ML) 30 ML VIAL IJ ONE (09:02)
[2018-01-24] MEDS ORDERED: NEOSTIGMINE METHYLSULFATE 0.5 MG/ML - 10 ML MDV ONE (09:54)
[2018-01-24] MEDS ORDERED: GLYCOPYRROLATE 0.2 MG/1 ML VIAL ONE (09:54)
--- NOTE | 2018-01-24 10:15 | OP ---
Operative Note - Note: Operative Date: 01/24/18 Pre-Operative Diagnosis: Chronic cholecystitis with cholelithiasis Operation: Laparoscopic JOSE E and cholecystectomy Findings: dense intraabdominal adhesions and gallbladder with 2 large stones Post-Operative Diagnosis: Other (intra-abdominal adhesions) Surgeon: Bryan Munroe Transcriptionist: Calixto Dorman Anesthesia: General Specimens Removed: gallbladder Estimated Blood Loss (mls): 15 Operative Report Dictated: Yes
--- NOTE | 2018-01-24 10:29 | SURG ---
Surgery Outer Diameter Technician Note Outer Diameter Technician: Calixto Dorman PA-C Date of Service: 01/24/18 Diagnosis: Chronic cholecystitis and abdominal adhesions Procedure: Laproscopic lysis of adhesions and lap cholecystectomy I was present for the entirety of the operative procedure. For further detail, please refer to operative report. Visit type - Case Type Case Type: Scheduled - Emergency Emergency Visit: No - New patient This patient is new to me today: Yes Date on this admission: 01/24/18
--- NOTE | 2018-01-24 10:30 | PROC ---
Procedure Note Procedure: Intraoperative placement of may catheter, placed in the OR without incident.
[2018-01-24] MEDS ORDERED: ONDANSETRON 4 MG/2 ML VIAL ONE (11:42)
--- NOTE | 2018-01-24 11:45 | OP ---
DATE OF OPERATION: 01/24/2018 PROCEDURE: Laparoscopic lysis of adhesions and cholecystectomy. PREOPERATIVE DIAGNOSIS: Chronic cholecystitis with cholelithiasis. POSTOPERATIVE DIAGNOSIS: Chronic cholecystitis with cholelithiasis and intraabdominal adhesions. SURGEON: Bryan Munroe MD STAFF APPRAISER: JENNIFER Hernandez ANESTHESIA: General endotracheal. FINDINGS ON PROCEDURE: This is an 82-year-old female who 6 weeks prior developed acute cholecystitis secondary to large gallstones with symptoms of more than 5 days. Percutaneous cholecystostomy was done at the time with clinical improvement. Patient now presents for interval cholecystectomy. Consent was obtained after discussing the risks, benefits, and alternatives of the procedure. DESCRIPTION OF PROCEDURE: Patient was brought to the operating room and placed in supine position. General endotracheal anesthesia was administered. The abdomen was prepped and draped in the usual sterile fashion. Using 0.5% Marcaine, local anesthesia was administered to the proposed incision sites. The peritoneal cavity was entered using the Optiview technique via a 5-mm umbilical incision using a 5-mm 30-degree scope inserted in the 5-mm optical port. Pneumoperitoneum was established. The peritoneal cavity was carefully inspected and was noted to be free of inadvertent injury. Dense adhesions of the omentum to the posterior abdominal wall were encountered at the area of the gallbladder, as well as dense adhesions of the omentum to the gallbladder was noted. The patient was placed in reverse Trendelenburg [id number] position. An 11 -mm port was placed in the subxiphoid region under direct vision. Two 5-mm ports were inserted at the right subcostal region at the mid clavicular and anterior axillary lines. The adhesions of the liver to the posterior abdominal wall were also encountered and were taken down sharply using the hook dissector connected to monopolar cautery. Adhesions of the posterior abdominal wall and the omentum to the gallbladder were also taken down sharply using the hook dissector connected to monopolar cautery. The gallbladder fundus was noted to contain a large stone, and this was grasped with toothed grasper for stable traction. The cholecystostomy tube tract was eventually taken down, and the catheter was removed. The fundus was grasped and retracted superiorly, and the infundibulum was grasped and retracted inferolaterally. The adhesion of the pylorus to the gallbladder was also taken down carefully using the hook dissector connected to monopolar cautery. The hepatocystic triangle was localized, and the visceral peritoneum covering the area was scored using the hook dissector. This exposed the cystic duct and cystic artery. The proximal gallbladder wall was lifted up from the liver bed using he hook dissector connected to monopolar cautery. A window was then created between the gallbladder bed and the proximal gallbladder wall behind the cystic artery to create the critical view of safety. The cystic duct and cystic artery were skeletonized and clipped at 3 points followed by transection leaving 2 clips at each cystic artery and cystic duct stumps. The gallbladder was then dissected from its bed in antegrade fashion using the hook dissector connected to monopolar cautery. After this was completed, the gallbladder bed was carefully inspected and was noted to be free of inadvertent injury. The small amount of blood clots and fluid was irrigated with sterile normal saline until return was clear. The Morison's pouch as well as the right hepatic gutter was also irrigated with sterile normal saline until return was clear. The gallbladder was placed in an Endobag and extracted via the subxiphoid incision which was lengthened to about 4 cm to accommodate the large 4-cm stone. The pneumoperitoneum was then evacuated, and the ports were removed. The subxiphoid wound was closed with continuous Vicryl 0 suture for the fascia and subcuticular sutures using Biosyn 4-0 for the skin. The rest of the port sites were also closed with subcuticular Biosyn 4-0 suture. The wound closure was reinforced with Dermabond. The patient was successfully extubated and transferred to the post-anesthesia care unit in satisfactory condition. ESTIMATED BLOOD LOSS: About 15 mL. WOUND CLASS: Clean-contaminated. The patient received 2 g of Ancef prior to the start of the procedure. Ghassan [id number] MTDD
[2018-01-24] MEDS ORDERED: ONDANSETRON 4 MG/2 ML VIAL IVPUSH PRN (12:36)
[2018-01-24] MEDS ORDERED: ACETAMINOPHEN 325 MG TABLET (FP) PO ONE (14:07)
[2018-01-24] MEDS ORDERED: oxyCODONE HCL 5 MG TABLET PO PRN (14:08)
[2018-01-24 18:08] VITALS: BP 146/76; PULSE 92; TEMP 98.1
--- NOTE | 2018-01-27 17:45 | PATH ---
Surgical Pathology Report Patient Name: BJ SPRINGER [facility]. Rec. #: [id number] /Age/Gender: 1935 (Age: 82) / F Account: [id number] Location: [facility] Taken: 01/24/2018 Received: 01/24/2018 Reported: 01/27/2018 Physicians: Bryan Munroe M.D. Specimen(s) Received GALLBLADDER Clinical History Chronic cholecystitis/cholelithiasis Final Diagnosis GALLBLADDER, LAPAROSCOPIC CHOLECYSTECTOMY: ACUTE AND CHRONIC CHOLECYSTITIS WITH CHOLELITHIASIS. ONE BENIGN PERIDUCTAL LYMPH NODE (0/1). Electronically Signed Giulia Smith M.D. Gross Description Received in formalin, labeled "gallbladder," is a 9.0 x 3.2 x 3.0 cm. gallbladder with a 0.2 cm. in length portion of cystic duct attached. There is a 0.8 cm in greatest dimension periductal lymph node present. The outer surface is cope-pink and varies from smooth to shaggy. The lumen contains red-brown blood as well as 2 brown, irregular choleliths measuring 2.3 and 2.8 cm in greatest dimension. The mucosa is cope-red and focally eroded. The wall of the gallbladder ranges from a 0.1-0.4 cm. in thickness. Assistant Teacher sections are submitted in one cassette. saudi/01/24/2018
== END 2018-01-24 17:50 | disposition home or self-care (01) ==
LOC: JASU-SURG 06:08
PROVIDERS: ATTEND Surgery
PROC: 0FT44ZZ Resection of Gallbladder, Percutaneous Endoscopic Approach (ICD-10-PCS; principal; 2018-01-24 08:00)
DX: K80.10 Calculus of gallbladder with chronic cholecystitis without obstruction (principal); K66.0 Peritoneal adhesions (postprocedural) (postinfection)
CPT/HCPCS: 88304-TC; 94760

== ENCOUNTER 2018-08-15 07:22 | Day surgery (SDC) | payer OTHER ==
[2018-08-14 11:09] VITALS: BMI 29.2
--- NOTE | 2018-08-15 09:31 | HP ---
History & Physical Update - History History: No Change - Physical Physical: No Change - Assessment Assessment: No Change - Plan Plan: No Change
[2018-08-15] MEDS ORDERED: MIDAZOLAM HCL 2 MG/2 ML SINGLE DOSE VIAL ONE (09:38)
[2018-08-15] MEDS ORDERED: SODIUM CHLORIDE 0.9% P/F 10 ML VIAL IJ ONE (09:39)
[2018-08-15] MEDS ORDERED: ceFAZolin SODIUM 1 GM VIAL ONE (09:39)
[2018-08-15] MEDS ORDERED: ceFAZolin SODIUM 1 GM VIAL IVPB ONE (09:40)
[2018-08-15] MEDS ORDERED: LIDOCAINE 1%/EPI 1:100000 (20 ML MULTI DOSE VIAL) IJ ONE (10:04)
[2018-08-15] MEDS ORDERED: PROMETHAZINE HCL 25 MG/1 ML VIAL IVPUSH PRN (10:18)
[2018-08-15] MEDS ORDERED: ONDANSETRON 4 MG/2 ML VIAL IVPUSH PRN (10:18)
[2018-08-15] MEDS ORDERED: KETOROLAC TROMETHAMINE 30 MG/1 ML VIAL IVPUSH ONE (10:19)
--- NOTE | 2018-08-15 10:20 | OP ---
Operative Note - Note: Operative Date: 08/15/18 Pre-Operative Diagnosis: right posterior neck sebaceous cyst Operation: Excision, posterior neck sebaceous cyst Findings: 2 cm sebaceous cyst Surgeon: Bryan Munroe Anesthesia: MAC Specimens Removed: sebaceous cyst Estimated Blood Loss (mls): 1 Operative Report Dictated: Yes
[2018-08-15] MEDS ORDERED: LACTATED RINGERS SOLUTION 1,000 ML IV SCH (10:30)
--- NOTE | 2018-08-15 11:11 | OP ---
DATE OF OPERATION: 08/15/2018 PROCEDURE: Excision of right posterior neck sebaceous cyst. PREOPERATIVE DIAGNOSIS: Right posterior neck sebaceous cyst. POSTOPERATIVE DIAGNOSIS: Right posterior neck sebaceous cyst. SURGEON: Bryan Munroe M.D. ANESTHESIA: Local with sedation. FINDINGS AND PROCEDURE: This is an 83-year-old female who presents with a long standing history of a slowly growing sebaceous cyst of the posterior neck. On examination, patient has a 2 cm cystic mass with central sinus with well-defined borders, so the patient was advised excision of the cyst and consent was obtained after discussing the risks, benefits and alternatives of the procedure. Patient was brought to the operating room and placed in supine right lateral decubitus position. The operative site was prepped and draped in the usual sterile fashion. Patient was given intravenous sedation by the anesthesia team. Using lidocaine 1% with epinephrine field block anesthesia was administered. A 2 x 1 cm elliptical incision was made using scalpel blade No. 15 incorporating the central sinus. Further dissection was done using combined Bovie cautery and Metzenbaum scissors until the cyst together with the ellipse of skin was completely excised down to the subcutaneous layer. Hemostasis was achieved using Bovie cautery. The wound was closed with interrupted Biosyn 4-0 suture for the dermis and continuous Biosyn 4-0 suture for the subcuticular layer. The wound closure was reinforced with Dermabond. Patient was transferred to the post anesthesia care unit in satisfactory condition. The estimated blood loss was about 1 mL. Wound class clean. Patient received a gram of Ancef prior to the start of the procedure. Ghassan [id number]
[2018-08-15 11:17] VITALS: BP 129/67; PULSE 71; TEMP 97.3
--- NOTE | 2018-08-18 19:30 | PATH ---
Surgical Pathology Report Patient Name: BJ SPRINGER [facility]. Rec. #: [id number] /Age/Gender: 1935 (Age: 83) / F Account: [id number] Location: [facility] Taken: 08/15/2018 Received: 08/15/2018 Reported: 08/18/2018 Physicians: Bryan Munroe M.D. Specimen(s) Received EPIDERMOID CYST Clinical History Epidermoid cyst Final Diagnosis POSTERIOR NECK, EPIDERMOID CYST, EXCISION: EPIDERMAL INCLUSION CYST. Electronically Signed Giulia Smith M.D. Gross Description Received in formalin labeled "epidermoid cyst" is an irregular portion of light cope to delgado-cope soft tissue measuring 1.3 x 1.5 x 1.2 cm. Cut section shows a fairly circumscribed cyst which measures 1 cm in greatest dimension containing homogenous material. The entire specimen is submitted in one cassette SZ/08/15/2018 san/08/15/2018
== END 2018-08-15 12:05 | disposition home or self-care (01) ==
LOC: JASU-SURG 07:22
PROVIDERS: ATTEND Surgery
PROC: 0HB4XZZ Excision of Neck Skin, External Approach (ICD-10-PCS; 2018-08-15)
PROC: 0HQ4XZZ Repair Neck Skin, External Approach (ICD-10-PCS; principal; 2018-08-15 09:30)
DX: L72.0 Epidermal cyst (principal)
CPT/HCPCS: 88304-TC; 94760

== ENCOUNTER → 2022-06-28 | Day surgery (SDC) | payer OTHER | END | disposition home or self-care (01) | LOC: FMAMMOTONE 12:37 | PROVIDERS: ATTEND Family Medicine Geriatric Medicine | PROC: 0HBU3ZX Excision of Left Breast, Percutaneous Approach, Diagnostic (ICD-10-PCS; principal; 2022-06-28) | DX: N60.12 Diffuse cystic mastopathy of left breast (principal); N60.22 Fibroadenosis of left breast; R92.1 Mammographic calcification found on diagnostic imaging of breast | CPT/HCPCS: 19081; 76098-TC-FY; 87899; 88305-TC; A4648 ==

== ENCOUNTER 2023-03-11 13:09 | Inpatient (IN) | payer OTHER ==
[2023-03-11 16:46] LABS: BASO % 0.5 % (0-2.0); EOS % 0.1 % (0-4.5); HEMATOCRIT 52.3 % (32.4-45.2); HEMOGLOBIN 17.3 GM/dL (10.7-15.3); LYMPH % 11.5 % (8-40); MEAN CELL VOLUME 90.9 fl (80-96); MEAN PLT VOLUME 8.1 fl (7.5-11.1); MONO % 11.2 % (3.8-10.2); NEUT % 76.7 % (42.8-82.8); PLATELET COUNT 498 10^3/uL (134-434); RBC 5.76 M/mm3 (3.60-5.2); RDW 14.3 % (11.6-15.6); WHITE BLOOD COUNT 12.4 K/mm3 (4.0-10.0)
[2023-03-11 17:20] LABS: ANISOCYTOSIS 1+; MACROCYTOSIS 0
[2023-03-11 17:37] LABS: POTASSIUM 3.9 mmol/L (3.5-5.1)
[2023-03-11 17:39] LABS: ALBUMIN 3.6 g/dl (3.4-5.0); CALCIUM 10.7 mg/dL (8.5-10.1)
[2023-03-11 17:44] LABS: BILIRUBIN,TOTAL 0.6 mg/dL (0.2-1)
[2023-03-11] MEDS ORDERED: SODIUM CHLORIDE 0.9% 500 ML INFUS.BAG IV ONE (17:45)
[2023-03-12 05:33] VITALS: BMI 35.7
[2023-03-12] MEDS ORDERED: ACETAMINOPHEN 1000 MG/100 ML BAG IVPB PRN (08:49)
[2023-03-12] MEDS: PANTOPRAZOLE SODIUM 40 MG VIAL IVPUSH SCH (10:50)
[2023-03-12] MEDS: DEXTROSE 5%-0.45% SALINE 1,000 ML IV SCH (10:52)
[2023-03-12] MEDS: amLODIPine BESYLATE 5 MG TABLET (FP) PO SCH (21:24)
[2023-03-13] MEDS: DEXTROSE 5%-0.45% SALINE 1,000 ML IV SCH (05:37)
[2023-03-13 08:34] LABS: BASO % 0.5 % (0-2.0); EOS % 1.4 % (0-4.5); HEMATOCRIT 43.3 % (32.4-45.2); HEMOGLOBIN 14.5 GM/dL (10.7-15.3); LYMPH % 12.8 % (8-40); MCH 30.4 pg (25.7-33.7); MCHC 33.4 g/dl (32.0-36.0); MEAN CELL VOLUME 90.9 fl (80-96); MEAN PLT VOLUME 7.9 fl (7.5-11.1); MONO % 10.4 % (3.8-10.2); NEUT % 74.9 % (42.8-82.8); PLATELET COUNT 337 10^3/uL (134-434); RBC 4.76 M/mm3 (3.60-5.2); WHITE BLOOD COUNT 8.4 K/mm3 (4.0-10.0)
[2023-03-13 08:56] LABS: POTASSIUM 3.1 mmol/L (3.5-5.1)
[2023-03-13 09:01] LABS: BLOOD UREA NITROGEN 40.1 mg/dL (7-18)
[2023-03-13 09:04] LABS: CREATININE 1.6 mg/dL (0.55-1.3)
[2023-03-13 09:08] LABS: ALBUMIN 2.7 g/dl (3.4-5.0); CALCIUM 8.7 mg/dL (8.5-10.1)
[2023-03-13] MEDS: PANTOPRAZOLE SODIUM 40 MG VIAL IVPUSH SCH (12:44)
[2023-03-13] MEDS ORDERED: HALOPERIDOL LACTATE 5 MG/ML IM ONE (16:45)
[2023-03-13] MEDS: ENOXAPARIN NA (PORCINE) 40 MG/0.4 ML DISP.SYRIN SQ SCH (18:36)
[2023-03-13] MEDS: KCL 10 MEQ IVPB 10 MEQ/100 ML INFUS.BAG IVPB SCH ×2 (22:28→23:57)
[2023-03-13] MEDS: amLODIPine BESYLATE 5 MG TABLET (FP) PO SCH (22:31)
[2023-03-14] MEDS: KCL 10 MEQ IVPB 10 MEQ/100 ML INFUS.BAG IVPB SCH (00:55)
[2023-03-14] MEDS ORDERED: TRIMETHOBENZAMIDE HCL 200MG/2ML INJ IM PRN (01:56)
[2023-03-14] MEDS: DEXTROSE 5%-0.45% SALINE 1,000 ML IV SCH ×3 (07:37→11:21)
[2023-03-14 08:10] LABS: BASO % 0.2 % (0-2.0); EOS % 0.3 % (0-4.5); HEMATOCRIT 48.4 % (32.4-45.2); HEMOGLOBIN 16.2 GM/dL (10.7-15.3); LYMPH % 8.9 % (8-40); MCH 30.6 pg (25.7-33.7); MCHC 33.6 g/dl (32.0-36.0); MEAN CELL VOLUME 91.2 fl (80-96); MEAN PLT VOLUME 8.2 fl (7.5-11.1); MONO % 7.3 % (3.8-10.2); NEUT % 83.3 % (42.8-82.8); PLATELET COUNT 318 10^3/uL (134-434); RDW 14.2 % (11.6-15.6); WHITE BLOOD COUNT 9.2 K/mm3 (4.0-10.0)
[2023-03-14 09:08] LABS: POTASSIUM 3.7 mmol/L (3.5-5.1)
[2023-03-14 09:10] LABS: CALCIUM 9.2 mg/dL (8.5-10.1)
[2023-03-14 09:11] LABS: BLOOD UREA NITROGEN 31.6 mg/dL (7-18)
[2023-03-14 09:14] LABS: CREATININE 1.5 mg/dL (0.55-1.3)
[2023-03-14 09:15] LABS: BILIRUBIN,TOTAL 0.6 mg/dL (0.2-1); TOT PROT 6.8 g/dl (6.4-8.2)
[2023-03-14] MEDS: PANTOPRAZOLE SODIUM 40 MG VIAL IVPUSH SCH (10:55)
[2023-03-14] MEDS: ENOXAPARIN NA (PORCINE) 40 MG/0.4 ML DISP.SYRIN SQ SCH (10:55)
[2023-03-14] MEDS: amLODIPine BESYLATE 5 MG TABLET (FP) PO SCH ×2 (23:12→23:35)
[2023-03-15 09:21] LABS: BASO % 0.5 % (0-2.0); EOS % 1.8 % (0-4.5); HEMATOCRIT 43.7 % (32.4-45.2); HEMOGLOBIN 14.9 GM/dL (10.7-15.3); LYMPH % 13.9 % (8-40); MCH 30.5 pg (25.7-33.7); MEAN CELL VOLUME 89.7 fl (80-96); MEAN PLT VOLUME 8.3 fl (7.5-11.1); MONO % 9.3 % (3.8-10.2); NEUT % 74.5 % (42.8-82.8); PLATELET COUNT 319 10^3/uL (134-434); RBC 4.87 M/mm3 (3.60-5.2); RDW 14.1 % (11.6-15.6); WHITE BLOOD COUNT 5.8 K/mm3 (4.0-10.0)
[2023-03-15 09:30] LABS: POTASSIUM 3.1 mmol/L (3.5-5.1)
[2023-03-15 09:40] LABS: BLOOD UREA NITROGEN 21.4 mg/dL (7-18); CALCIUM 8.5 mg/dL (8.5-10.1)
[2023-03-15 09:44] LABS: CREATININE 1.4 mg/dL (0.55-1.3)
[2023-03-15] MEDS: PANTOPRAZOLE SODIUM 40 MG VIAL IVPUSH SCH ×2 (10:11→22:19)
[2023-03-15 10:59] VITALS: RESP 18
[2023-03-15] MEDS ORDERED: POTASSIUM CHLORIDE ORAL LIQUID 20 MEQ/15 ML PO ONE (16:19)
[2023-03-15] MEDS: KCL 10 MEQ IVPB 10 MEQ/100 ML INFUS.BAG IVPB SCH ×3 (16:54→22:13)
[2023-03-15] MEDS ORDERED: KCL 10 MEQ IVPB 10 MEQ/100 ML INFUS.BAG IVPB SCH (22:15)
[2023-03-15] MEDS: amLODIPine BESYLATE 5 MG TABLET (FP) PO SCH (22:19)
[2023-03-16 09:27] LABS: BASO % 0.5 % (0-2.0); EOS % 1.9 % (0-4.5); HEMATOCRIT 41.9 % (32.4-45.2); MCH 30.5 pg (25.7-33.7); MCHC 33.4 g/dl (32.0-36.0); MEAN CELL VOLUME 91.1 fl (80-96); MEAN PLT VOLUME 8.5 fl (7.5-11.1); MONO % 8.1 % (3.8-10.2); NEUT % 76.5 % (42.8-82.8); PLATELET COUNT 293 10^3/uL (134-434); RDW 14.3 % (11.6-15.6); WHITE BLOOD COUNT 7.5 K/mm3 (4.0-10.0)
[2023-03-16] MEDS: ENOXAPARIN NA (PORCINE) 40 MG/0.4 ML DISP.SYRIN SQ SCH (09:30)
[2023-03-16] MEDS: PANTOPRAZOLE SODIUM 40 MG VIAL IVPUSH SCH ×2 (09:30→21:58)
[2023-03-16 09:51] LABS: POTASSIUM 3.6 mmol/L (3.5-5.1)
[2023-03-16 09:55] LABS: ALBUMIN 2.5 g/dl (3.4-5.0); BLOOD UREA NITROGEN 14.8 mg/dL (7-18); CALCIUM 8.7 mg/dL (8.5-10.1)
[2023-03-16 09:58] LABS: CREATININE 1.4 mg/dL (0.55-1.3)
[2023-03-16 10:00] LABS: BILIRUBIN,TOTAL 0.8 mg/dL (0.2-1)
[2023-03-16 10:01] LABS: TOT PROT 5.6 g/dl (6.4-8.2)
[2023-03-16] MEDS: amLODIPine BESYLATE 5 MG TABLET (FP) PO SCH (21:58)
[2023-03-17] MEDS: PANTOPRAZOLE SODIUM 40 MG VIAL IVPUSH SCH ×2 (09:28→22:13)
[2023-03-17] MEDS: ENOXAPARIN NA (PORCINE) 40 MG/0.4 ML DISP.SYRIN SQ SCH (09:28)
[2023-03-17] MEDS: amLODIPine BESYLATE 5 MG TABLET (FP) PO SCH (22:13)
[2023-03-18] MEDS: PANTOPRAZOLE SODIUM 40 MG VIAL IVPUSH SCH (09:56)
[2023-03-18] MEDS: ENOXAPARIN NA (PORCINE) 40 MG/0.4 ML DISP.SYRIN SQ SCH (09:56)
[2023-03-18 14:29] VITALS: BP 118/69; PULSE 92; TEMP 98.3
== END 2023-03-18 17:59 | disposition home or self-care (01) | DRG 392 ==
LOC: JER 13:09 → JERBED 17:46 → J7W 03-12 05:19 → OBSVTOIN 03-12 08:47
PROVIDERS: ADMIT Internal Medicine; ATTEND Internal Medicine
PROC: 0DB68ZX Excision of Stomach, Via Natural or Artificial Opening Endoscopic, Diagnostic (ICD-10-PCS; principal; 2023-03-15 10:00)
DX: K29.70 Gastritis, unspecified, without bleeding (principal); K22.89 Other specified disease of esophagus; R07.9 Chest pain, unspecified; R13.10 Dysphagia, unspecified; I10 Essential (primary) hypertension; E78.5 Hyperlipidemia, unspecified; K20.90 Esophagitis, unspecified without bleeding; K44.9 Diaphragmatic hernia without obstruction or gangrene; E86.0 Dehydration
CPT/HCPCS: 0241U-QW; 36415; 71045-TC-FY; 71250-TC; 74220-TC-FY; 80048; 80053; 82550; 83690; 84484; 85025; 88305-TC; 93005; 93010; 99285-25; G0378